=== PATIENT | male | born 1965 | race Caucasian/White ===

== ENCOUNTER 2017-04-12 04:13 | Emergency (ER) | payer BC ==
[~2017-04-12] VITALS: Ht 175.3 cm; Wt 117.8 kg
[~2017-04-12 04:13] MED LIST: ASPI1TAB83 PO; FLX10 PO; LSN5 PO; MECL1TAB42 PO; NRV5 PO; TPRSR/50 PO; ZLF/50 PO
[2017-04-12 04:17] VITALS: TEMP 36.4; Ht 175.3 cm; Wt 117.8 kg
[2017-04-12] MEDS ORDERED: CEFTRIAXONE SOD INJ 1 GM ADDVIAL IV STA (04:33)
--- NOTE | 2017-04-12 04:41 | EMERGENCY ROOM VISIT NOTE ---
History First contact with patient: 04:23 Chief Complaint: WOUND INFECTION Stated Complaint: INFECTION/PAIN IN STOMACH Nursing Triage Summary: c/o reddness, pain and warmth to lower abdomen. hx skin infection in foot, knee and arm that were treated with abx and resolved. pt went to [facility] and instructed to come here if worsening. History of Present Illness The patient is a 51 year old male who presents to the Emergency Room with complaints of an infection to his abdomen. The patient reports that he developed redness and warmth of the lower abdomen yesterday morning. He states that he was seen at an urgent care clinic and prescribed doxycycline. He was told to come here if symptoms worsen. He states that the pain seems to be spreading and the area of redness has increased in size. He does report a recent history of infections of his hand, knee and foot within the past several months. The patient denies any fevers. He rates his discomfort an 8/10. He has a history of a surgery on his spleen but states it was not removed. Review of Systems A complete 10 point review of systems was reviewed with the patient with pertinent positives and negatives as per history of present illness. All else were negative. Past Medical/Surgical History Medical Problems: (1) Benign hypertension (2) Colectomy (3) Diverticulitis (4) Migraine Surgical Problems: (1) Splenic repair Family History Heart disease Social History Smoking Status: Never Smoker Alcohol Use: none Marital Status: Housing Status: lives with significant other Current/Historical Medications Scheduled Amlodipine (Norvasc), 5 MG PO DAILY Aspirin (Aspirin), 81 MG PO DAILY Lisinopril (Zestril), 40 MG PO DAILY Metoprolol Succinate (Metoprolol Succinate ER), 100 MG PO DAILY Sertraline HCl (Sertraline HCl), 100 MG PO DAILY Physical Exam Vital Signs Date Time Temp Pulse Resp B/P (MAP) Pulse Ox O2 Delivery O2 Flow Rate FiO2 04/12/17 05:56 64 18 134/96 98 Room Air 04/12/17 04:17 36.4 91 20 168/100 96 Room Air Physical Exam VITALS: Vitals are noted on the nurse's note and reviewed by myself. Vital signs stable. GENERAL: This is a 51-year-old male, in no acute distress, nontoxic in appearance, well-developed well-nourished. SKIN: There is erythema and warmth to touch extending across the lower abdomen. There is a midline scar below the umbilicus. There is a large scar in the left upper quadrant. There is a small area of induration at the inferior aspect of the midline scar. There is no fluctuance. There are no openings of the skin. HEART: Regular rate and rhythm without murmurs gallops or rubs. LUNGS: Clear to auscultation bilaterally without wheezes, rales or rhonchi. ABDOMEN: Positive bowel sounds x 4. There is tenderness over the area of erythema and warmth. The abdomen is otherwise soft and nontender without masses. NEURO: Patient was alert and oriented to person place and time. Medical Decision & Procedures Laboratory Results 04/12/17 04:35 Red Blood Count 5.12, Mean Corpuscular Volume 91.8, Mean Corpuscular Hemoglobin 31.1, Mean Corpuscular Hemoglobin Concent 33.8, Mean Platelet Volume 10.0, Neutrophils (%) (Auto) 58.8, Lymphocytes (%) (Auto) 19.2, Monocytes (%) (Auto) 17.5, Eosinophils (%) (Auto) 4.1, Basophils (%) (Auto) 0.3, Neutrophils # (Auto ) 4.19, Lymphocytes # (Auto) 1.37, Monocytes # (Auto) 1.25, Eosinophils # (Auto ) 0.29, Basophils # (Auto) 0.02 04/12/17 04:35 Test 04/12/17 04:35 White Blood Count 7.13 K/uL (4.8-10.8) Red Blood Count 5.12 M/uL (4.7-6.1) Hemoglobin 15.9 g/dL (14.0-18.0) Hematocrit 47.0 % (42-52) Mean Corpuscular Volume 91.8 fL (80-100) Mean Corpuscular Hemoglobin 31.1 pg (25-34) Mean Corpuscular Hemoglobin Concent 33.8 g/dl (32-36) Platelet Count 198 K/uL (130-400) Mean Platelet Volume 10.0 fL (7.4-10.4) Neutrophils (%) (Auto) 58.8 % Lymphocytes (%) (Auto) 19.2 % Monocytes (%) (Auto) 17.5 % Eosinophils (%) (Auto) 4.1 % Basophils (%) (Auto) 0.3 % Neutrophils # (Auto) 4.19 K/uL (1.4-6.5) Lymphocytes # (Auto) 1.37 K/uL (1.2-3.4) Monocytes # (Auto) 1.25 K/uL (0.11-0.59) Eosinophils # (Auto) 0.29 K/uL (0-0.5) Basophils # (Auto) 0.02 K/uL (0-0.2) RDW Standard Deviation 46.3 fL (36.4-46.3) RDW Coefficient of Variation 13.8 % (11.5-14.5) Immature Granulocyte % (Auto) 0.1 % Immature Granulocyte # (Auto) 0.01 K/uL (0.00-0.02) Anion Gap 7.0 mmol/L (3-11) Est Creatinine Clear Calc Drug Dose 94.1 ml/min Estimated GFR () 83.7 Estimated GFR (Non- 72.3 BUN/Creatinine Ratio 10.6 (10-20) Calcium Level 9.0 mg/dl (8.5-10.1) Medications Administered Medications (Trade) Dose Ordered Sig/Radha Route Start Time Stop Time Status Last Admin Dose Admin Ceftriaxone Sodium (Rocephin Inj) 1 gm NOW STAT IV 04/12/17 04:33 04/12/17 04:34 DC 04/12/17 04:49 1 GM Medical Decision Differential diagnosis includes abscess, cellulitis, among others. The patient was evaluated as above. He has a cellulitis of the lower abdomen. He was placed on doxycycline and currently has taken one dose of this. He is afebrile and nontoxic in appearance. There is some mild induration without fluctuance. Labs were drawn. Patient has no leukocytosis. He was given 1 g Rocephin IV. The skin was outlined with a skin marker. Patient will continue doxycycline and will return here in 24 hours for recheck. He was advised to return sooner if the redness worsens significantly or if he develops a fever. He verbalized understanding of my assessment and treatment plan and was discharged home in good condition. Medication Reconcilliation Current Medication List: was personally reviewed by me Blood Pressure Screening Patient's blood pressure: Elevated blood pressure Blood pressure disposition: Elevated BP felt to be situational Impression Primary Impression: Cellulitis of abdominal wall Departure Information Dispostion Home / Self-Care Condition GOOD Referrals Phoebe Calloway M.D. (PCP) Patient Instructions My [facility] Additional Instructions Continue the doxycycline as prescribed. For pain control, you can use the following [id number] medicines (if >12 yo): - Regular strength (325mg/tab) Tylenol (acetaminophen) 2 tabs every 4-6 hours as needed. Do not exceed 12 tablets in a 24 hour period. Avoid taking more than 4 grams (4000 mg) of Tylenol per day. This includes any other sources of acetaminophen you may take on a regular basis. - Regular strength (200 mg/tab) Advil (ibuprofen) 1-2 tabs every 4-6 hours as needed. Do not exceed a dose of 3200 mg per day. Return in 24 hours for a recheck. Return to the emergency department sooner with significantly worsening redness/ swelling, fevers, or any other new/concerning symptoms.
[2017-04-12] MEDS ORDERED: AMLO-110 PO (04:50)
[2017-04-12] MEDS ORDERED: LISI-461 PO (04:52)
[2017-04-12] MEDS ORDERED: LISI40TA PO (04:54)
[2017-04-12 04:56] LABS: BASO % 0.3 %; BASO ABS # 0.02 K/uL (0-0.2); EOS % 4.1 %; EOS ABS # 0.29 K/uL (0-0.5); HEMOGLOBIN 15.9 g/dL (14.0-18.0); IG# 0.01 K/uL (0.00-0.02); LYMPH % 19.2 %; LYMPH ABS # 1.37 K/uL (1.2-3.4); MEAN CELL VOLUME 91.8 fL (80-100); MEAN CORPUSCULAR HEMOGLOBIN 31.1 pg (25-34); MEAN CORPUSCULAR HGB CONC 33.8 g/dl (32-36); MONO % 17.5 %; MONO ABS # 1.25 K/uL (0.11-0.59); NEUT % 58.8 %; NEUT ABS # 4.19 K/uL (1.4-6.5); PLATELET COUNT 198 K/uL (130-400); RED CELL DISTRIBUTION WIDTH CV 13.8 % (11.5-14.5); RED CELL DISTRIBUTION WIDTH SD 46.3 fL (36.4-46.3); WHITE BLOOD COUNT 7.13 K/uL (4.8-10.8)
[2017-04-12 05:11] LABS: CREATININE 1.15 mg/dl (0.60-1.40); POTASSIUM 3.7 mmol/L (3.5-5.1)
[2017-04-12 05:56] VITALS: BP 134/96; PULSE 64; O2SAT 98
== END 2017-04-12 05:59 | disposition home or self-care (01) ==
LOC: C.EDB 04:14 → C.EDA 05:59
DX: L03.311 Cellulitis of abdominal wall (principal); I10 Essential (primary) hypertension; Z79.82 Long term (current) use of aspirin; Z79.899 Other long term (current) drug therapy; Z87.19 Personal history of other diseases of the digestive system; Z82.49 Family history of ischemic heart disease and other diseases of the circulatory system

== ENCOUNTER 2018-09-08 15:40 | Inpatient (IN) ==
[2018-09-08] MEDS ORDERED: ACETAMINOPHEN 1,000 MG/100 ML VIAL IV STA (16:09)
[2018-09-08] MEDS ORDERED: SODIUM CHLORIDE 0.9% 1000ML 1,000 ML IV ONE (16:09)
[2018-09-08] MEDS ORDERED: ONDANSETRON INJ 2 MG/ML 2 ML VIAL IV STA (16:09)
[2018-09-08] MEDS ORDERED: DICYCLOMINE HCL 10 MG/ML 2 ML AMP/VIAL IM ONE (16:09)
[2018-09-08] MEDS ORDERED: fentaNYL citrate 100 MCG/2 ML VIAL IV STA (16:09)
[2018-09-08 16:39] LABS: Basophils # (auto) 0.02 K/uL (0-0.2); Basophils % (auto) 0.3 %; Eosinophils # (auto) 0.16 K/uL (0-0.5); Eosinophils % (auto) 2.6 %; Hematocrit (blood only) 47.6 % (42-52); Hemoglobin 16.4 g/dL (14.0-18.0); Immature Granulocytes # (auto) 0.02 K/uL (0.00-0.02); Immature Granulocytes % (auto) 0.3 %; Lymphocytes % (auto) 32.3 %; Mean Corpuscular Hgb Conc 34.5 g/dL (32-36); Mean Corpuscular Volume 90.5 fL (80-100); Mean Platelet Volume 10.1 fL (7.4-10.4); Monocytes # (auto) 1.08 K/uL (0.11-0.59); Monocytes % (auto) 17.4 %; Neutrophils # (auto) 2.92 K/uL (1.4-6.5); Neutrophils % (auto) 47.1 %; Platelet Count 251 K/uL (130-400); RDW Coefficient of Variation 13.7 % (11.5-14.5); RDW Standard Deviation 45.3 fL (36.4-46.3); Red Blood Count 5.26 M/uL (4.7-6.1)
[2018-09-08 16:55] LABS: Alanine Aminotransferase 34 U/L (12-78); Albumin Level 3.5 gm/dl (3.4-5.0); Aspartate Aminotransferase 19 U/L (15-37); BUN Creatinine Ratio 17.5 (10-20); Blood Urea Nitrogen 30 mg/dl (7-18); Calcium 8.6 mg/dl (8.5-10.1); Carbon Dioxide 30 mmol/L (21-32); Chloride 104 mmol/L (98-107); Creatinine Clr Calc Pharmacy 64.5 ml/min; Est GFR (African American) 51.8; Est GFR (Non-African American) 44.7; Glucose 72 mg/dl (70-99); Magnesium 2.4 mg/dl (1.8-2.4); Potassium 3.1 mmol/L (3.5-5.1); Sodium 139 mmol/L (136-145)
[2018-09-08 17:00] LABS: Albumin Globulin Ratio 0.8 (0.9-2); Alkaline Phosphatase 62 U/L (45-117); Bilirubin,Total 0.5 mg/dl (0.2-1); Globulin 4.4 gm/dl (2.5-4.0); Total Protein 7.9 gm/dl (6.4-8.2); Troponin I < 0.015 ng/ml (0-0.045)
--- NOTE | 2018-09-08 17:24 | CT Scan Report ---
CT SCAN OF THE ABDOMEN AND PELVIS WITHOUT CONTRAST CLINICAL HISTORY: Abdominal pain and diarrhea. COMPARISON STUDY: June 09, 2012 TECHNIQUE: CT scan of the abdomen and pelvis was performed from the lung bases to the proximal femurs . Images are reviewed in the axial, sagittal, and coronal planes. IV contrast was not administered fo r this examination. A dose lowering technique was utilized adhering to the principles of ALARA. CT DOSE: 1492.32 mGy.cm FINDINGS: Lower chest: The heart is normal in size and configuration, without pericardial effusion. The lung ba ses and pleural spaces are clear. Liver: The unenhanced liver is normal in size, contour, and attenuation. There is no intrahepatic rita iary ductal dilatation. There is a right lobe dystrophic calcification. Gallbladder: Unremarkable. Spleen: Normal in size and attenuation. Pancreas: Unremarkable. Adrenal glands: Unremarkable. Kidneys: There is a punctate nonobstructing right renal calculus. No ureteral or bladder calculi are visualized. Bowel: There are no transition zone to indicate bowel obstruction. The appendix appears normal. There is colonic diverticulosis. There is infiltration of the pericolonic fat at the level of the transver se colon. The findings are consistent with acute diverticulitis. There are no fluid collections to in dicate an abscess. Peritoneum: There is no intraperitoneal free air or abdominal ascites. Vasculature: The abdominal aorta is normal in course and caliber. Adenopathy: None. Pelvic viscera: The bladder, and pelvic viscera are unremarkable. Skeletal structures: No destructive osseous lesions are seen. Note is made of a few bone islands. IMPRESSION: 1. Acute diverticulitis of the transverse colon. No evidence of peridiverticular abscess 2. No evidence of bowel obstruction. No evidence of free air 3. Normal appendix Electronically signed by: Claudio Moody M.D. 09/08/2018 5:23 PM
[2018-09-08] MEDS ORDERED: PIPERACILL/TAZOBAC CONSULT ACTIVE PRN (17:52)
[2018-09-08] MEDS ORDERED: PIPERACILLIN/TAZOBACTAM 4.5 GM/120 ML BAG IV ONE (17:52)
[2018-09-08 18:09] LABS: Appearance Urine Clear (Clear); Bilirubin Urine Negative (Negative); Blood Urine Negative (Negative); Color Urine Yellow; Glucose Urine UA Negative (Negative); Ketones Urine Negative (Negative); Leukocyte Esterase Urine Negative (Negative); Nitrite Urine Negative (Negative); Protein Urine Negative (Negative); Specific Gravity Urine 1.026 (1.000-1.030); Urobilinogen Urine Negative (Negative)
[2018-09-08] MEDS ORDERED: fentaNYL citrate 100 MCG/2 ML VIAL IV PRN (18:18)
[2018-09-08] MEDS ORDERED: SODIUM CHLORIDE 0.9% 1000ML 1,000 ML IV SCH (18:30)
--- NOTE | 2018-09-08 19:08 | History & Physical Report ---
Date of Service September 08, 2018 Assessment & Plan (1) Acute diverticulitis: -Admit to [facility] -Patient presenting from home with reports of abdominal pain x1 week, was seen by PCP 4 days ago and placed on Cipro for suspected diverticulitis -Patient has had continued pain, nausea, diarrhea -In the ED, CT ABD/pelvis showing acute diverticulitis without abscess -Afebrile, no leukocytosis; does not appear septic -Received IV Zosyn in the ED, will continue with -Supportive care with IVF, PRN pain and antiemetic medications -Noted colonoscopy from 2013 demonstrated diverticulosis throughout the entire examined colon -Given history of recurrent flares, recommend outpatient follow-up with GI a nd/or general surgery (2) SHY (acute kidney injury): -Creatinine 1.7 -Likely prerenal nature secondary to poor p.o. intake, diarrhea in combination with continued TAMICA inhibitor and diuretic use -IVF, hold lisinopril and chlorthalidone -Follow renal functions (3) Hypokalemia: -Mild, K+ 3.1 -Replace, follow potassium levels (4) Hypertension: -BP controlled, continue amlodipine and metoprolol -Holding chlorthalidone and lisinopril as above due to SHY (5) Depression: -Continue sertraline (6) DVT prophylaxis: -SCDs, ambulate History of Present Illness Chief Complaint: Abdominal pain Primary Care Provider: CARROLL DOLL 52-year-old male who presents to the ED with abdominal pain. Patient reports his symptoms began 1 week ago. He was seen by his PCP 4 days ago and was placed on Cipro for suspected diverticulitis. Patient has history of multiple recurrences of diverticulitis, status post sigmoid resection in 1996. Patient reports pain is located in his lower abdomen. He has had several episodes of diarrhea. Reports diarrhea occurs shortly after eating. For the past couple of days, he has decreased his food intake. Reports he has been drinking water. Denies bright red bleeding per rectum and dark tarry stools. He has had nausea denies any vomiting. He reports being lightheaded and dizzy however no syncopal events. He has had a persistent headache located over his left confucianist. No blurred vision. Denies chest pain shortness of breath. Reports episodes of diaphoresis however no chills and does not think he has had a fever. No urinary symptoms. In the ED, CT ABD/pelvis is showing acute diverticulitis of the transverse colon. Labs show creatinine 1.7, K+ 3.1. Patient was given IVF, IV Zosyn, IV Zofran, IV fentanyl, IM dicyclomine, IV Tylenol. Allergies Allergy/AdvReac Type Severity Reaction Status Date / Time Iodinated Contrast- Oral and Allergy Mild HIVES Verified 09/08/18 16:46 IV Dye prednisone Allergy Mild CHEST PAIN Verified 09/08/18 16:46 AND SHORTNESS OF BREATH Home Medications Home Medications Medication Instructions Recorded Confirmed Type amlodipine 10 mg PO DAILY 09/08/18 09/08/18 History aspirin [Aspirin Low Dose] 81 mg PO DAILY 09/08/18 09/08/18 History chlorthalidone 25 mg PO DAILY 09/08/18 09/08/18 History cholecalciferol (vitamin D3) 1,000 unit PO DAILY 09/08/18 09/08/18 History ciprofloxacin HCl 500 mg PO BID 09/08/18 09/08/18 History dicyclomine 10 mg PO TID PRN 09/08/18 09/08/18 History lisinopril 40 mg PO DAILY 09/08/18 09/08/18 History metoprolol succinate 100 mg PO DAILY 09/08/18 09/08/18 History sertraline 150 mg PO DAILY 09/08/18 09/08/18 History Past Med/Surg History Medical History 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) Depression (Chronic) IBS (irritable bowel syndrome) (Chronic) Diverticulosis (Chronic) Hypertension (Chronic) Surgical History H/O hemorrhoidectomy (Chronic) History of bowel resection (Chronic) Sigmoid for diverticulitis H/O arthroscopic knee surgery (Chronic) Family History Mother Cerebral aneurysm Social History Preferred Language: Moldovan Communication Ability: Effective Beliefs That Will Affect Care: None Current Living Situation: Spouse and Family Other Information That Helps Us Care for You: No Feels Safe at Home: Yes Smoking Status: Never smoker Hx Alcohol Use: Yes Alcohol type: wine Hx Substance Use: Yes substance use type: does not use Last Used Substance: Unknown Review of Systems Review of Systems: ROS per HPI, all other systems reviewed and negative Physical Exam Constitutional: WD/WN, vitals as above Eyes: PERRL, conjunctivae normal, anicteric sclerae ENMT: Ears: no external ear abnormality Nose: no external nose abnormality Mouth: + dry oral mucous membranes Respiratory: normal respiratory effort, lungs clear to auscultation Cardiovascular: Rate/Rhythm: regular rate and regular rhythm Vessels: normal peripheral pulses Extremities: no edema Gastrointestinal (Abdomen): Inspection/Auscultation: normal bowel sounds; abdomen not distended Percussion/Palpation: + abdomen tender (Lower abdomen, more pronounced in the left lower quadrant) and abdomen soft; no hepatosplenomegaly Musculoskeletal: no cyanosis or clubbing, extremities motor strength 5/5 Skin: no rashes, warm and dry Neurologic: PERRL, EOMI, accommodation nl, no face palsy, no dysarthria Psychiatric: A+Ox3, euthymic affect Results & Data Vital Signs (Past 12 Hours) Vital Signs Temp Pulse Resp BP Pulse Ox 09/08/18 17:00 67 12 92 09/08/18 16:30 66 17 92 09/08/18 16:29 69 19 94 09/08/18 16:23 64 21 123/75 94 09/08/18 15:55 36.9 C 86 18 120/75 96 Laboratory Results Short CBC 09/08/18 Range/Units 16:23 WBC 6.20 (4.8-10.8) K/uL Hgb 16.4 (14.0-18.0) g/dL Hct 47.6 (42-52) % Plt Count 251 (130-400) K/uL BMP 09/08/18 16:23 Sodium 139 Potassium 3.1 L Chloride 104 Carbon Dioxide 30 BUN 30 H Creatinine 1.70 H Glucose 72 Calcium 8.6 Cardiac Enzymes 09/08/18 Range/Units 16:23 Troponin I < 0.015 (0-0.045) ng/ml Liver Function 09/08/18 Range/Units 16:23 Total Bilirubin 0.5 (0.2-1) mg/dl AST 19 (15-37) U/L ALT 34 (12-78) U/L Alkaline Phosphatase 62 (45-117) U/L Albumin 3.5 (3.4-5.0) gm/dl Urine 09/08/18 Range/Units 17:50 Urine Color Yellow Urine Appearance Clear (Clear) Urine pH 5.0 (4.5-7.5) Ur Specific [place] 1.026 (1.000-1.030) Urine Protein Negative (Negative) Urine Glucose (UA) Negative (Negative) Diagnostic Findings CT ABD/PELVIS IMPRESSION: 1. Acute diverticulitis of the transverse colon. No evidence of peridiverticular abscess 2. No evidence of bowel obstruction. No evidence of free air 3. Normal appendix Code Status & VTE Plan Code Status Patient is a full code as per my discussion with him. VTE Prophylaxis Plan VTE Prophylaxis will be ordered: Yes Supervising Physician Co-Signing Physician Notes I have seen and examined the patient and have discussed the case with the provider above. I agree with the assessment and plan as stated with the following exceptions. Mr Masterson reports intermittent LLQ pain and a history of recurrent diverticulitis. The pain was more intense beginning one week ago, and he was having bowel urgency after eating. He denies any fevers, chills, nausea, vomiting or other issues. He reports eating alot of Nguyen's and quick easily accessible foods like this that are cheap. He verbalized understanding that he is overweight (obese) and needs to lose weight. We discussed dairy-free diet as an option and moving to wheat-free as another option if the first was unsuccessful. We discussed the importance of working out and eating right including fresh fruits and vegetables and lean meats and other sources of protein. He is otherwise feeling well and is healthy. He notably did see Tresa [facility] in June 2018 who recommended Bentyl PRN, Miralax and fiber combination to regulate his stool, avoiding high fat foods and encouraged weight loss. On exam he is hemodynamically stable and afebrile. He has RUQ pain and LLQ pain with abdomen soft and nondistended. Heart and lung exam are normal and he is in no acute distress. He just underwent a RUQ US as outpatient earlier today revealing no evidence of acute cholecystitis with severe hepatic steatosis. Suspect cipro as monotherapy was not enough, and if feeling well after a couple of days on Zosyn, would think it is reasonable to de-escalate to Cipro/Flagyl for discharge to complete antibiotic course. Active issues: acute transverse colon diverticulitis, SHY. DO Dg
[2018-09-08] MEDS ORDERED: ONDANSETRON INJ 2 MG/ML 2 ML VIAL IV PRN (19:52)
[2018-09-08] MEDS ORDERED: ACETAMINOPHEN 325 MG TAB PO PRN (19:52)
[2018-09-08] MEDS ORDERED: POTASSIUM CHLORIDE 20 MEQ TABCR PO STA (19:52)
[2018-09-08] MEDS: NSS + 20MEQ KCL 20 MEQ/1,000 ML BAG IV SCH (20:58)
--- NOTE | 2018-09-08 23:12 | Emergency Department Note ---
Entered by Ariela Jackson acting as a scribe for Zulma Mckee DO History of Present Illness General Chief complaint: Abdominal Pain Stated complaint: STOMACH PAIN, DIARRHEA/HEADACHE X7 DAYS Time Seen by Provider: 09/08/18 16:01 Source: patient Limitations: no limitations History of Present Illness Onset (ago): day(s) 7 Location: abdomen Severity: severe and similar to prior episodes Pain Consistency: + constant Maximum Pain Intensity: 5 Quality: + constant Associated symptoms: + denies other symptoms (urinary symptoms), + diaphoresis, + nausea/vomiting (complains of nausea) and + other (dizziness and lightheadedness); no fever/chills The patient is a 52 year old male who presents to the ED complaining of constant severe generalized abdominal pain that began 7 days ago. He complains of a headache, noting that this is similar to his past migraines. The patient complains of diarrhea, diaphoresis, nausea, dizziness and lightheadedness. He denies any fevers/chills and urinary symptoms. States he has had looser stools for quite some time and is typically associated with his diet. Denies any black or bloody stools. He notes that this is similar to his past episodes of diverticulitis, but he notes abdominal pain is more central than before. The patient notes that he saw his PCP 3 days ago, and he was prescribed ciprofloxacin. He reports that he has not noticed any improvement of the sympto ms. He states in the he did have a resection of part of his colon due to severe and recurrent diverticulitis. Has had GI follow-up since then including a colonoscopy 1 year ago. States he does have a scheduled routine GI follow-up appointment next week. Home Medications Home Medications Medication Instructions Recorded Confirmed Type amlodipine 10 mg PO DAILY 09/08/18 09/08/18 History aspirin [Aspirin Low Dose] 81 mg PO DAILY 09/08/18 09/08/18 History chlorthalidone 25 mg PO DAILY 09/08/18 09/08/18 History cholecalciferol (vitamin D3) 1,000 unit PO DAILY 09/08/18 09/08/18 History ciprofloxacin HCl 500 mg PO BID 09/08/18 09/08/18 History dicyclomine 10 mg PO TID PRN 09/08/18 09/08/18 History lisinopril 40 mg PO DAILY 09/08/18 09/08/18 History metoprolol succinate 100 mg PO DAILY 09/08/18 09/08/18 History sertraline 150 mg PO DAILY 09/08/18 09/08/18 History Allergies Allergy/AdvReac Type Severity Reaction Status Date / Time Iodinated Contrast- Oral and Allergy Mild HIVES Verified 09/08/18 16:46 IV Dye prednisone Allergy Mild CHEST PAIN Verified 09/08/18 16:46 AND SHORTNESS OF BREATH Past Med/Surg History Medical History 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) Depression (Chronic) IBS (irritable bowel syndrome) (Chronic) Diverticulosis (Chronic) Hypertension (Chronic) Surgical History H/O hemorrhoidectomy (Chronic) History of bowel resection (Chronic) Sigmoid for diverticulitis H/O arthroscopic knee surgery (Chronic) Family History Mother Cerebral aneurysm Social History Preferred Language: Sami Communication Ability: Effective Beliefs That Will Affect Care: None Current Living Situation: Spouse and Family Other Information That Helps Us Care for You: No Feels Safe at Home: Yes Smoking Status: Never smoker Hx Alcohol Use: Yes Alcohol type: wine Hx Substance Use: Yes substance use type: does not use Last Used Substance: Unknown Review of Systems See HPI for pertinent positives & negatives. and A total of 10 systems reviewed and were otherwise negative Physical Exam Vital Signs Vital Signs - 24 hr 09/08/18 15:55 09/08/18 16:23 09/08/18 16:29 Temperature 36.9 C Temperature Source Oral Sepsis Recent Fever Within 48 Hours No Sepsis New/Unexplained Change in Mental Status No Sepsis Action Taken by Nursing No Action Required Pulse Rate 86 64 69 Pulse Rate from SpO2 Sensor 66 67 Respiratory Rate 18 21 19 Blood Pressure 120/75 123/75 Blood Pressure Mean 90 91 Pulse Oximetry 96 94 94 Oxygen Delivery Method Room Air 09/08/18 16:30 09/08/18 17:00 09/08/18 17:22 Temperature Temperature Source Sepsis Recent Fever Within 48 Hours Sepsis New/Unexplained Change in Mental Status Sepsis Action Taken by Nursing Pulse Rate 66 67 53 L Pulse Rate from SpO2 Sensor 65 62 53 L Respiratory Rate 17 12 Blood Pressure 100/58 L Blood Pressure Mean 72 Pulse Oximetry 92 92 90 Oxygen Delivery Method 09/08/18 17:30 09/08/18 17:32 09/08/18 18:01 Temperature Temperature Source Sepsis Recent Fever Within 48 Hours Sepsis New/Unexplained Change in Mental Status Sepsis Action Taken by Nursing Pulse Rate 55 L 55 L 56 L Pulse Rate from SpO2 Sensor 55 L 56 L Respiratory Rate 22 16 20 Blood Pressure 101/60 Blood Pressure Mean 73 Pulse Oximetry 93 91 Oxygen Delivery Method 09/08/18 18:02 09/08/18 18:10 09/08/18 18:20 Temperature Temperature Source Sepsis Recent Fever Within 48 Hours Sepsis New/Unexplained Change in Mental Status Sepsis Action Taken by Nursing Pulse Rate 54 L 56 L 58 L Pulse Rate from SpO2 Sensor 55 L 56 L 58 L Respiratory Rate 19 17 Blood Pressure 126/67 Blood Pressure Mean 86 Pulse Oximetry 91 92 93 Oxygen Delivery Method 09/08/18 18:30 09/08/18 18:31 09/08/18 18:40 Temperature Temperature Source Sepsis Recent Fever Within 48 Hours Sepsis New/Unexplained Change in Mental Status Sepsis Action Taken by Nursing Pulse Rate 53 L 56 L 52 L Pulse Rate from SpO2 Sensor 54 L 59 L 54 L Respiratory Rate 24 21 17 Blood Pressure 122/72 Blood Pressure Mean 88 Pulse Oximetry 93 91 94 Oxygen Delivery Method 09/08/18 18:43 Temperature Temperature Source Sepsis Recent Fever Within 48 Hours Sepsis New/Unexplained Change in Mental Status Sepsis Action Taken by Nursing Pulse Rate 52 L Pulse Rate from SpO2 Sensor 56 L Respiratory Rate 21 Blood Pressure 122/72 Blood Pressure Mean 88 Pulse Oximetry 95 Oxygen Delivery Method GENERAL: alert, well appearing, well nourished, no distress, non-toxic EYE EXAM: normal conjunctiva, PERRL and EOM's grossly intact OROPHARYNX: no exudate, no erythema, lips, buccal mucosa, and tongue normal and mucous membranes are dry NECK: supple, no nuchal rigidity, no adenopathy, non-tender LUNGS: Clear to auscultation. Normal chest wall mechanics, no w/r/r HEART: no murmurs, S1 normal and S2 normal ABDOMEN: abdomen soft, normo-active bowel sounds, no masses, no rebound or guarding. Diffuse abdominal tenderness, worse in the lower abdomen. No pulsatile mass. BACK: Back is symmetrical on inspection and there is no deformity, no midline tenderness, no CVA tenderness. SKIN: no rashes and no bruising, no petechiae UPPER EXTREMITIES: upper extremities are grossly normal. FROM, nml pulses b/l. LOWER EXTREMITIES: No pitting edema. FROM, nml pulses b/l. NEURO EXAM: Normal sensorium, cranial nerves II-XII grossly intact, normal speech, no gross weakness of arms, no gross weakness of legs. Course 1606: The patient was evaluated in room B08. A complete history and physical exam was performed. 1753: I reassessed the patient, and he stated that his pain was relieved. 3: I spoke with Tresa No, about the patient's case. She will further evaluate the patient. Consultations Consultation #1: I spoke with Tresa No, about the patient's case. She will further evaluate the patient. Time: 18:23 Administered Medications Potassium Chloride/Sodium Chloride (Normal Saline W/20 Meq Kcl) 20 meq in 1,000 mls @ 125 mls/hr IV .Q8H LEONARD Stop: 10/08/18 20:29 Last Admin: 09/08/18 20:58 Dose: 125 mls/hr Documented by: [id number] Discontinued Medications Dicyclomine HCl (Bentyl) 20 mg IM NOW ONE Stop: 09/08/18 16:10 Last Admin: 09/08/18 16:55 Dose: 20 mg Documented by: [id number] Fentanyl Citrate (Fentanyl Citrate) 100 mcg IV NOW STA Stop: 09/08/18 16:10 Last Admin: 09/08/18 16:55 Dose: 100 mcg Documented by: [id number] Acetaminophen (Ofirmev) 1,000 mg in 100 mls @ 400 mls/hr IV NOW STA Stop: 09/08/18 16:23 Last Infusion: 09/08/18 17:18 Dose: 0 mls/hr Documented by: [id number] Admin: 09/08/18 16:56 Dose: 400 mls/hr Documented by: [id number] Sodium Chloride (Nss 1000ml) 1,000 mls @ 999 mls/hr IV .Q1H1M ONE Stop: 09/08/18 17:09 Last Infusion: 09/08/18 17:36 Dose: 0 mls/hr Documented by: [id number] Admin: 09/08/18 16:56 Dose: 999 mls/hr Documented by: [id number] Piperacillin Sod/Tazobactam Sod (Zosyn) 4.5 gm in 120 mls @ 240 mls/hr IV NOW ONE Stop: 09/08/18 18:21 Last Infusion: 09/08/18 18:37 Dose: 0 mls/hr Documented by: [id number] Admin: 09/08/18 18:05 Dose: 240 mls/hr Documented by: [id number] Sodium Chloride (Nss 1000ml) 1,000 mls @ 125 mls/hr IV .Q8H LEONADR Stop: 10/08/18 18:29 Last Admin: 09/08/18 18:23 Dose: 125 mls/hr Documented by: [id number] Ondansetron HCl (Zofran) 4 mg IV NOW STA Stop: 09/08/18 16:10 Last Admin: 09/08/18 16:56 Dose: 4 mg Documented by: [id number] Potassium Chloride (Klor-Con M20) 40 meq PO NOW STA Stop: 09/08/18 19:53 Last Admin: 09/08/18 20:58 Dose: 40 meq Documented by: [id number] Medical Decision Making Differential Diagnosis Etiologies such as biliary colic, cholecystitis, hepatitis, pancreatitis, cardiac disease, pancreatitis, gastritis, peptic ulcer disease, appendicitis, cystitis, diverticulitis, mesenteric ischemia, inflammatory bowel disease, ileus, bowel obstruction, testicular torsion, aortic pathology, shingles, as well as others were considered. Medical Records Attestation: I reviewed the patient's medical records. Home Medications Current Medication List: was personally reviewed by me Laboratory Data Attestation: I reviewed the patient's lab results. Result diagrams: 09/08/18 16:23 09/08/18 16:23 Lab Results 09/08/18 09/08/18 09/08/18 Range/Units 16:23 16:23 16:23 WBC 6.20 (4.8-10.8) K/uL RBC 5.26 (4.7-6.1) M/uL Hgb 16.4 (14.0-18.0) g/dL Hct 47.6 (42-52) % MCV 90.5 (80-100) fL MCH 31.2 (25-34) pg MCHC 34.5 (32-36) g/dL RDW Std Deviation 45.3 (36.4-46.3) fL RDW Coeff of [place] 13.7 (11.5-14.5) % Plt Count 251 (130-400) K/uL MPV 10.1 (7.4-10.4) fL Immature Gran % (Auto) 0.3 % Neut % (Auto) 47.1 % Lymph % (Auto) 32.3 % [place] % (Auto) 17.4 % Eos % (Auto) 2.6 % Baso % (Auto) 0.3 % Immature Gran # (Auto) 0.02 (0.00-0.02) K/uL Neut # (Auto) 2.92 (1.4-6.5) K/uL Lymph # (Auto) 2.00 (1.2-3.4) K/uL [place] # (Auto) 1.08 H (0.11-0.59) K/uL Eos # (Auto) 0.16 (0-0.5) K/uL Baso # (Auto) 0.02 (0-0.2) K/uL Sodium 139 (136-145) mmol/L Potassium 3.1 L (3.5-5.1) mmol/L Chloride 104 (98-107) mmol/L Carbon Dioxide 30 (21-32) mmol/L Anion Gap 5.0 (3-11) BUN 30 H (7-18) mg/dl Creatinine 1.70 H (0.6-1.4) mg/dl Est Cr Clr Drug Dosing 64.5 ml/min Est GFR ( Amer) 51.8 Est GFR (Non-Af Amer) 44.7 BUN/Creatinine Ratio 17.5 (10-20) Glucose 72 (70-99) mg/dl POC Lactic Acid Les (0.90-1.70) mmol/L Calcium 8.6 (8.5-10.1) mg/dl Magnesium 2.4 (1.8-2.4) mg/dl Total Bilirubin 0.5 (0.2-1) mg/dl AST 19 (15-37) U/L ALT 34 (12-78) U/L Alkaline Phosphatase 62 (45-117) U/L Troponin I < 0.015 (0-0.045) ng/ml Total Protein 7.9 (6.4-8.2) gm/dl Albumin 3.5 (3.4-5.0) gm/dl Globulin 4.4 H (2.5-4.0) gm/dl Albumin/Globulin Ratio 0.8 L (0.9-2) Lipase 199 (73-393) U/L Procalcitonin < 0.05 (0-0.5) ng/ml Urine Color Urine Appearance (Clear) Urine pH (4.5-7.5) Ur Specific [place] (1.000-1.030) Urine Protein (Negative) Urine Glucose (UA) (Negative) Urine Ketones (Negative) Urine Blood (Negative) Urine Nitrite (Negative) Urine Bilirubin (Negative) Urine Urobilinogen (Negative) Ur Leukocyte Esterase (Negative) 09/08/18 09/08/18 Range/Units 16:42 17:50 WBC (4.8-10.8) K/uL RBC (4.7-6.1) M/uL Hgb (14.0-18.0) g/dL Hct (42-52) % MCV (80-100) fL MCH (25-34) pg MCHC (32-36) g/dL RDW Std Deviation (36.4-46.3) fL RDW Coeff of [place] (11.5-14.5) % Plt Count (130-400) K/uL MPV (7.4-10.4) fL Immature Gran % (Auto) % Neut % (Auto) % Lymph % (Auto) % [place] % (Auto) % Eos % (Auto) % Baso % (Auto) % Immature Gran # (Auto) (0.00-0.02) K/uL Neut # (Auto) (1.4-6.5) K/uL Lymph # (Auto) (1.2-3.4) K/uL [place] # (Auto) (0.11-0.59) K/uL Eos # (Auto) (0-0.5) K/uL Baso # (Auto) (0-0.2) K/uL Sodium (136-145) mmol/L Potassium (3.5-5.1) mmol/L Chloride (98-107) mmol/L Carbon Dioxide (21-32) mmol/L Anion Gap (3-11) BUN (7-18) mg/dl Creatinine (0.6-1.4) mg/dl Est Cr Clr Drug Dosing ml/min Est GFR ( Amer) Est GFR (Non-Af Amer) BUN/Creatinine Ratio (10-20) Glucose (70-99) mg/dl POC Lactic Acid Les 0.89 L (0.90-1.70) mmol/L Calcium (8.5-10.1) mg/dl Magnesium (1.8-2.4) mg/dl Total Bilirubin (0.2-1) mg/dl AST (15-37) U/L ALT (12-78) U/L Alkaline Phosphatase (45-117) U/L Troponin I (0-0.045) ng/ml Total Protein (6.4-8.2) gm/dl Albumin (3.4-5.0) gm/dl Globulin (2.5-4.0) gm/dl Albumin/Globulin Ratio (0.9-2) Lipase (73-393) U/L Procalcitonin (0-0.5) ng/ml Urine Color Yellow Urine Appearance Clear (Clear) Urine pH 5.0 (4.5-7.5) Ur Specific [place] 1.026 (1.000-1.030) Urine Protein Negative (Negative) Urine Glucose (UA) Negative (Negative) Urine Ketones Negative (Negative) Urine Blood Negative (Negative) Urine Nitrite Negative (Negative) Urine Bilirubin Negative (Negative) Urine Urobilinogen Negative (Negative) Ur Leukocyte Esterase Negative (Negative) Imaging Data Radiologist's Impression: Radiology results as stated below per my review and the radiologist's interpretation: CT SCAN OF THE ABDOMEN AND PELVIS WITHOUT CONTRAST CLINICAL HISTORY: Abdominal pain and diarrhea. COMPARISON STUDY: June 09, 2012 TECHNIQUE: CT scan of the abdomen and pelvis was performed from the lung bases to the proximal femurs. Images are reviewed in the axial, sagittal, and coronal planes. IV contrast was not administered for this examination. A dose lowering technique was utilized adhering to the principles of ALARA. CT DOSE: 1492.32 mGy.cm FINDINGS: Lower chest: The heart is normal in size and configuration, without pericardial effusion. The lung bases and pleural spaces are clear. Liver: The unenhanced liver is normal in size, contour, and attenuation. There is no intrahepatic biliary ductal dilatation. There is a right lobe dystrophic calcification. Gallbladder: Unremarkable. Spleen: Normal in size and attenuation. Pancreas: Unremarkable. Adrenal glands: Unremarkable. Kidneys: There is a punctate nonobstructing right renal calculus. No ureteral or bladder calculi are visualized. Bowel: There are no transition zone to indicate bowel obstruction. The appendix appears normal. There is colonic diverticulosis. There is infiltration of the pericolonic fat at the level of the transverse colon. The findings are consistent with acute diverticulitis. There are no fluid collections to indicate an abscess. Peritoneum: There is no intraperitoneal free air or abdominal ascites. Vasculature: The abdominal aorta is normal in course and caliber. Adenopathy: None. Pelvic viscera: The bladder, and pelvic viscera are unremarkable. Skeletal structures: No destructive osseous lesions are seen. Note is made of a few bone islands. IMPRESSION: 1. Acute diverticulitis of the transverse colon. No evidence of peridiverticular abscess 2. No evidence of bowel obstruction. No evidence of free air 3. Normal appendix Electronically signed by: Claudio Moody M.D. 09/08/2018 5:23 PM ECG Data Attestation: I personally reviewed and interpreted this ECG as follows: Indication: abdominal pain Rate (beats per minute): 67 Rhythm: sinus rhythm Findings: + other (normal axis, normal intervals); no acute ischemic change and no ectopy Blood Pressure Blood Pressure Findings: Normal blood pressure Blood Pressure Disposition: did not require urgent referral MDM Narrative Patient well-appearing here with diffuse abdominal pain, worse in the lower abdomen. Patient found to have acute diverticulitis on CT, no other acute pathology noted on CT imaging. I do not suspect ischemic component to complaints. No evidence of bacteremia/sepsis. No evidence of abscess or perforation. Patient hemodynamically stable and afebrile here. No leukocytosis although I suspect he is partially treated by the outpatient ciprofloxacin. It is unclear why Cipro monotherapy only was used on him as an outpatient. Patient given IV Zosyn here. Patient felt improved with IV fluids and pain medication. Patient does have a mild elevation of his creatinine to 1.7, I suspect this is likely due to dehydration, routine use of an TAMICA inhibitor, and use of the ciprofloxacin. Case discussed with hospitalist service for additional monitoring and evaluation. Impression & Plan Diverticulitis, Abdominal pain, Failure of outpatient treatment Discharge Plan Visit Data *Final* Discharge Date/Time: 09/08/18 21:51 Chief Complaint: Abdominal Pain Stated Complaint: STOMACH PAIN, DIARRHEA/HEADACHE X7 DAYS ED Provider: Zulma Mckee Discharge Problem: Diverticulitis, Abdominal pain, Failure of outpatient treatment Patient Disposition: Admitted As Inpatient Discharge Instructions Interventions: ED Discharge Assessment Last Done: 09/08/18 21:51 Discharge Problem: Abdominal pain Qualifiers: Abdominal location: generalized Qualified Code(s): R10.84 - Generalized abdominal pain The scribe's documentation has been prepared under my direction and personally reviewed by me in its entirety. I confirm that the note above accurately reflects all work, treatment, procedures, and medical decision making performed by me.
[2018-09-09] MEDS: PIPERACILLIN/TAZOBACTAM 4.5 GM in DEXTROSE 5% 100 ML IV SCH ×3 (00:01→15:58)
[2018-09-09] MEDS: NSS + 20MEQ KCL 20 MEQ/1,000 ML BAG IV SCH ×3 (05:02→20:03)
[2018-09-09 06:12] LABS: Hematocrit (blood only) 44.1 % (42-52); Hemoglobin 14.7 g/dL (14.0-18.0); Mean Corpuscular Hgb Conc 33.3 g/dL (32-36); Mean Corpuscular Volume 91.5 fL (80-100); Mean Platelet Volume 10.2 fL (7.4-10.4); Platelet Count 216 K/uL (130-400); RDW Coefficient of Variation 13.8 % (11.5-14.5); RDW Standard Deviation 46.5 fL (36.4-46.3); Red Blood Count 4.82 M/uL (4.7-6.1); White Blood Count 4.81 K/uL (4.8-10.8)
[2018-09-09 06:57] LABS: BUN Creatinine Ratio 16.1 (10-20); Creatinine Clr Calc Pharmacy 75.3 ml/min; Est GFR (African American) 62.8; Est GFR (Non-African American) 54.2; Potassium 3.6 mmol/L (3.5-5.1)
--- NOTE | 2018-09-09 07:24 | Hospitalist Progress Note ---
Date of Service September 09, 2018 Assessment & Plan (1) Acute diverticulitis: -Patient presenting from home with reports of abdominal pain x1 week, was seen by PCP 4 days ago and placed on Cipro for suspected diverticulitis -In the ED, CT ABD/pelvis showing acute diverticulitis without abscess -Afebrile, no leukocytosis; does not appear septic -Cont IV Zosyn -IVF, PRN pain and antiemetic medications -Noted colonoscopy from 2013 demonstrated diverticulosis throughout the entire examined colon -Given history of recurrent flares, recommend outpatient follow-up with GI and/or general surgery (2) SHY (acute kidney injury): -Likely prerenal nature secondary to poor p.o. intake, diarrhea in combination with continued TAMICA inhibitor and diuretic use -IVF, hold lisinopril and chlorthalidone -Follow renal functions (3) Hypokalemia: -Replace, follow potassium levels (4) Hypertension: -BP controlled, continue amlodipine and metoprolol -Holding chlorthalidone and lisinopril as above due to SHY (5) Depression: -Continue sertraline (6) DVT prophylaxis: -SCDs, ambulate -Labs Checked ROS-No Headache, No Visual Changes, No Nausea, No Vomiting, No Fever, No Chills, No Neck Pain or Stiffness, No Chest Pain, No Palpitations, No SOB, No YMERS, No Co ugh, No Sputum, No Wheezing, +Abdominal Pain, No Diarrhea, No Hematemesis, No Hemoptysis, No Unexpected Weight Loss, No Flank pain, No Melena, No Hematochezia, No Frequency, No Urgency, No Burning, No Hematuria, No Rashes, No Diaphoresis. Appetite is Normal Physical Exam Gen-AAO x 3, NAD, Afebrile Head-NCAT, EOMI, PERRLA, Anicteric Sclera, No Posterior Pharyngeal Erythema Neck-Supple, No JVD, No Thyromegaly, No Masses, No LAD, No Bruits Lungs-Clear to Auscultation Bilaterally, No Rales, No Rhonchi, No Wheezing, No Crepitus Chest-No S4, +S1, +S2, No S3, No Murmurs, No Rubs, No Gallops, No Ectopy Abdomen-Soft, Bowel Sounds Present, Tender, Non Distended, No Hepatomegaly, No Splenomegaly, No Palpable Masses, No Rebound, No Rigidity, No Guarding Musculoskeletal-Full Range of Motion Bilaterally, No CVAT Extremities-No Cyanosis, No Clubbing, No Edema Nuero-Cranial Nerves II-XII grossly intact, Motor WNL, DTRs WNL, Strength WNL, Non Focal Psych-Normal Mood Results & Data Vital Signs (Past 12 Hours) Vital Signs Temp Pulse Resp BP BP Pulse Ox 09/09/18 06:56 36.6 C 52 L 20 99/62 L 94 09/08/18 23:00 36.5 C 49 L 17 101/54 L 96 09/08/18 20:22 36.5 C 55 L 18 118/80 98 09/08/18 20:20 36.5 C 18 118/80 98
[2018-09-09] MEDS: AMLODIPINE BESYLATE 5 MG TAB PO SCH (07:46)
[2018-09-09] MEDS: METOPROLOL SUCC 50MG EXT REL TAB PO SCH (07:46)
[2018-09-09] MEDS: ASPIRIN 81 MG ECTAB PO SCH (07:47)
[2018-09-09] MEDS: SERTRALINE HCL 100 MG TABLET PO SCH (07:47)
[2018-09-09] MEDS: CHOLECALCIFEROL 1,000 UNITS TAB PO SCH (07:47)
[2018-09-09] MEDS: MoRPHine SULFATE 4 MG/ML 1 ML CARP\\VIAL IV PRN ×2 (12:30→21:43)
[2018-09-10] MEDS: PIPERACILLIN/TAZOBACTAM 4.5 GM in DEXTROSE 5% 100 ML IV SCH ×4 (00:33→23:24)
[2018-09-10] MEDS: NSS + 20MEQ KCL 20 MEQ/1,000 ML BAG IV SCH ×3 (03:53→19:26)
[2018-09-10 06:46] LABS: BUN Creatinine Ratio 8.8 (10-20); Calcium 7.9 mg/dl (8.5-10.1); Creatinine Clr Calc Pharmacy 84.6 ml/min; Est GFR (African American) 72.4; Est GFR (Non-African American) 62.4; Potassium 3.5 mmol/L (3.5-5.1)
[2018-09-10] MEDS: METOPROLOL SUCC 50MG EXT REL TAB PO SCH (08:18)
[2018-09-10] MEDS: SERTRALINE HCL 100 MG TABLET PO SCH (08:20)
[2018-09-10] MEDS: ASPIRIN 81 MG ECTAB PO SCH (08:20)
[2018-09-10] MEDS: CHOLECALCIFEROL 1,000 UNITS TAB PO SCH (08:20)
[2018-09-10] MEDS: AMLODIPINE BESYLATE 5 MG TAB PO SCH (08:20)
--- NOTE | 2018-09-10 10:02 | Hospitalist Progress Note ---
Date of Service September 10, 2018 Assessment & Plan (1) Acute diverticulitis: -Patient presenting from home with reports of abdominal pain x1 week, was seen by PCP 4 days [employer] and placed on Cipro for suspected diverticulitis -In the ED, CT ABD/pelvis showing acute diverticulitis without abscess -Afebrile, no leukocytosis; does not appear septic -Cont IV Zosyn -IVF, PRN pain and antiemetic medications -Noted colonoscopy from 2013 demonstrated diverticulosis throughout the entire examined colon -Given history of recurrent flares, recommend outpatient follow-up with GI and/or general surgery (2) SHY (acute kidney injury): -Likely prerenal nature secondary to poor p.o. intake, diarrhea in combination with continued TAMICA inhibitor and diuretic use -IVF, restart lisinopril and chlorthalidone -Follow renal functions (3) Hypokalemia: -Replace, follow potassium levels (4) Hypertension: -BP controlled, continue amlodipine and metoprolol -Resume chlorthalidone and lisinopril (5) Depression: -Continue sertraline (6) DVT prophylaxis: -SCDs, ambulate -Labs Checked -DC in 1-2 days ROS-No Headache, No Visual Changes, +Nausea, No Vomiting, No Fever, No Chills, No Neck Pain or Stiffness, No Chest Pain, No Palpitations, No SOB, No MYERS, No Cough, No Sputum, No Wheezing, +Abdominal Pain, No Diarrhea, No Hematemesis, No Hemoptysis, No Unexpected Weight Loss, No Flank pain, No Melena, No Hematochezia, No Frequency, No Urgency, No Burning, No Hematuria, No Rashes, No Diaphoresis. Appetite is Normal Physical Exam Gen-AAO x 3, NAD, Afebrile, obese Head-NCAT, EOMI, PERRLA, Anicteric Sclera, No Posterior Pharyngeal Erythema Neck-Supple, No JVD, No Thyromegaly, No Masses, No LAD, No Bruits Lungs-Clear to Auscultation Bilaterally, No Rales, No Rhonchi, No Wheezing, No Crepitus Chest-No S4, +S1, +S2, No S3, No Murmurs, No Rubs, No Gallops, No Ectopy Abdomen-Soft, Bowel Sounds Present, Tender, Non Distended, No Hepatomegaly, No Splenomegaly, No Palpable Masses, No Rebound, No Rigidity, No Guarding Musculoskeletal-Full Range of Motion Bilaterally, No CVAT Extremities-No Cyanosis, No Clubbing, No Edema Nuero-Cranial Nerves II-XII grossly intact, Motor WNL, DTRs WNL, Strength WNL, Non Focal Psych-Normal Mood Results & Data Vital Signs (Past 12 Hours) Vital Signs Temp Pulse Resp BP BP Pulse Ox 09/10/18 07:32 36.7 C 51 L 18 158/92 H 99 09/09/18 23:00 36.7 C 48 L 17 117/77 94
[2018-09-10] MEDS ORDERED: DICYCLOMINE HCL 10 MG CAP PO PRN (10:03)
[2018-09-10] MEDS: LISINOPRIL 40 MG TAB PO SCH (10:37)
[2018-09-10] MEDS: CHLORTHALIDONE 25 MG TAB PO SCH (10:38)
[2018-09-10] MEDS ORDERED: LORazepam 0.25 MG/0.5 ML VIAL IV PRN (10:46)
[2018-09-11] MEDS: NSS + 20MEQ KCL 20 MEQ/1,000 ML BAG IV SCH (03:20)
[2018-09-11 05:46] LABS: Basophils # (auto) 0.03 K/uL (0-0.2); Basophils % (auto) 0.6 %; Eosinophils # (auto) 0.17 K/uL (0-0.5); Eosinophils % (auto) 3.3 %; Hematocrit (blood only) 43.1 % (42-52); Hemoglobin 14.6 g/dL (14.0-18.0); Immature Granulocytes # (auto) 0.02 K/uL (0.00-0.02); Immature Granulocytes % (auto) 0.4 %; Lymphocytes # (auto) 1.78 K/uL (1.2-3.4); Lymphocytes % (auto) 34.7 %; Mean Corpuscular Hgb Conc 33.9 g/dL (32-36); Mean Platelet Volume 9.9 fL (7.4-10.4); Monocytes # (auto) 0.71 K/uL (0.11-0.59); Monocytes % (auto) 13.8 %; Neutrophils # (auto) 2.42 K/uL (1.4-6.5); Neutrophils % (auto) 47.2 %; Platelet Count 209 K/uL (130-400); RDW Coefficient of Variation 13.4 % (11.5-14.5); RDW Standard Deviation 44.5 fL (36.4-46.3); Red Blood Count 4.79 M/uL (4.7-6.1); White Blood Count 5.13 K/uL (4.8-10.8)
[2018-09-11 06:16] LABS: BUN Creatinine Ratio 7.3 (10-20); Calcium 7.9 mg/dl (8.5-10.1); Creatinine Clr Calc Pharmacy 90.2 ml/min; Est GFR (African American) 78.2; Est GFR (Non-African American) 67.5; Potassium 3.5 mmol/L (3.5-5.1)
[2018-09-11 07:36] VITALS: PULSE 56; TEMP 97.9; O2SAT 98
[2018-09-11] MEDS: METOPROLOL SUCC 50MG EXT REL TAB PO SCH (07:47)
[2018-09-11] MEDS: ASPIRIN 81 MG ECTAB PO SCH (07:49)
[2018-09-11] MEDS: CHOLECALCIFEROL 1,000 UNITS TAB PO SCH (07:49)
[2018-09-11] MEDS: AMLODIPINE BESYLATE 5 MG TAB PO SCH (07:49)
[2018-09-11] MEDS: PIPERACILLIN/TAZOBACTAM 4.5 GM in DEXTROSE 5% 100 ML IV SCH (07:49)
[2018-09-11] MEDS: CHLORTHALIDONE 25 MG TAB PO SCH (07:49)
[2018-09-11] MEDS: LISINOPRIL 40 MG TAB PO SCH (07:49)
[2018-09-11] MEDS: SERTRALINE HCL 100 MG TABLET PO SCH (07:49)
--- NOTE | 2018-09-11 08:09 | Discharge Summary ---
Date of Service September 11, 2018 Admission HPI Per Admitting Provider 52-year-old male who presents to the ED with abdominal pain. Patient reports his symptoms began 1 week ago. He was seen by his PCP 4 days ago and was placed on Cipro for suspected diverticulitis. Patient has history of multiple recurrences of diverticulitis, status post sigmoid resection in 1996. Patient reports pain is located in his lower abdomen. He has had several episodes of diarrhea. Reports diarrhea occurs shortly after eating. For the past couple of days, he has decreased his food intake. Reports he has been drinking water. Denies bright red bleeding per rectum and dark tarry stools. He has had nausea denies any vomiting. He reports being lightheaded and dizzy however no syncopal events. He has had a persistent headache located over his left judaism. No blurred vision. Denies chest pain shortness of breath. Reports episodes of diaphoresis however no chills and does not think he has had a fever. No urinary symptoms. In the ED, CT ABD/pelvis is showing acute diverticulitis of the hobbs sverse colon. Labs show creatinine 1.7, K+ 3.1. Patient was given IVF, IV Zosyn, IV Zofran, IV fentanyl, IM dicyclomine, IV Tylenol. Admission Exam Per Admitting Provider Constitutional: WD/WN, vitals as above Eyes: PERRL, conjunctivae normal, anicteric sclerae ENMT: Ears: no external ear abnormality Nose: no external nose abnormality Mouth: + dry oral mucous membranes Respiratory: normal respiratory effort, lungs clear to auscultation Cardiovascular: Rate/Rhythm: regular rate and regular rhythm Vessels: normal peripheral pulses Extremities: no edema Gastrointestinal (Abdomen): Inspection/Auscultation: normal bowel sounds; abdomen not distended Percussion/Palpation: + abdomen tender (Lower abdomen, more pronounced in the left lower quadrant) and abdomen soft; no hepatosplenomegaly Musculoskeletal: no cyanosis or clubbing, extremities motor strength 5/5 Skin: no rashes, warm and dry Neurologic: PERRL, EOMI, accommodation nl, no face palsy, no dysarthria Psychiatric: A+Ox3, euthymic affect Principal Diagnosis Diverticulitis Obesity SHY IBS Anxiety HTN Depression Discharge Exam Physical Exam Gen-AAO x 3, NAD, Afebrile Head-NCAT, EOMI, PERRLA, Anicteric Sclera, No Posterior Pharyngeal Erythema Neck-Supple, No JVD, No Thyromegaly, No Masses, No LAD, No Bruits Lungs-Clear to Auscultation Bilaterally, No Rales, No Rhonchi, No Wheezing, No Crepitus Chest-No S4, +S1, +S2, No S3, No Murmurs, No Rubs, No Gallops, No Ectopy Abdomen-Soft, Bowel Sounds Present, Non Tender, Non Distended, No Hepatomegaly, No Splenomegaly, No Palpable Masses, No Rebound, No Rigidity, No Guarding Musculoskeletal-Full Range of Motion Bilaterally, No CVAT Extremities-No Cyanosis, No Clubbing, No Edema Nuero-Cranial Nerves II-XII grossly intact, Motor WNL, DTRs WNL, Strength WNL, Non Focal Psych-Normal Mood Discharge Data Allergies Allergy/AdvReac Type Severity Reaction Status Date / Time Iodinated Contrast- Oral and Allergy Mild HIVES Verified 09/08/18 16:46 IV Dye prednisone Allergy Mild CHEST PAIN Verified 09/08/18 16:46 AND SHORTNESS OF BREATH Consultations 09/08/18 18:18 ED Decision to Admit Stat Ordered Studies 09/08/18 16:09 CT abd pelvis wo con Stat Current Diagnoses Hypokalemia (09/08/18) Major depressive disorder, single episode, unspecified (09/08/18) Essential (primary) hypertension (09/08/18) Diverticulitis of intestine, part unspecified, without perforation or abscess without bleeding (09/08/18) Acute kidney failure, unspecified (09/08/18) Encounter for prophylactic measures, unspecified (09/08/18) Allergies Iodinated Contrast- Oral and IV Dye Allergy (Mild, Verified 09/08/18 16:46) HIVES prednisone Allergy (Mild, Verified 09/08/18 16:46) CHEST PAIN AND SHORTNESS OF BREATH Height/Weight/Isolation Height 5 ft 10 in Weight 119 kg Isolation Type Contact Precautions Chemistry 09/10/18 09/11/18 05:50 05:18 Sodium 139 141 Potassium 3.5 3.5 Chloride 106 108 H Carbon Dioxide 29 29 Anion Gap 4.0 4.0 BUN 11 D 9 Creatinine 1.29 1.21 Glucose 89 90 Microbiology 09/08/18 17:50 Stool Shiga Toxin Test - Final 09/08/18 17:50 Stool Stool Culture - Final No Salmonella isolated, No Shigella isolated, No Campylobacter jejuni isolated. Hospital Course (1) Acute diverticulitis: -Patient presenting from home with reports of abdominal pain x1 week, was seen by PCP 4 days [employer] and placed on Cipro for suspected diverticulitis -In the ED, CT ABD/pelvis showing acute diverticulitis without abscess -Afebrile, no leukocytosis; does not appear septic -DC Home on Augmentin and Flagyl x 7 days -Noted colonoscopy from 2013 demonstrated diverticulosis throughout the entire examined colon -Given history of recurrent flares, recommend outpatient follow-up with GI and/or general surgery (2) SHY (acute kidney injury): Resolved (3) Hypokalemia: -Replaced (4) Hypertension: -Esume amlodipine and metoprolol -Resume chlorthalidone and lisinopril (5) Depression: -Continue sertraline (6) DVT prophylaxis: DC Today and f/u c Dr bello Hartley 09/13 at 1055 am Total Time Total Time Spent Total Time Spent (In Minutes): 40 min Total Time Includes: Examination of the Patient, Discharge Planning, Medication Reconciliation and Communication With Other Providers Discharge Plan Discharge Items Patient Disposition: Home - Self-Care Reason For Visit: DIVERTICULITIS,SHY Discharge Diagnosis: Diverticulitis Obesity SHY IBS Anxiety HTN Depression Condition: Good Discharge Goals: Improve disease control Activity: Resume your previous activity Lifting: Gradually increase as tolerated Bathing: No limitations Sexual Activity: When tolerated Exercise/Sports: Gradually increase as tolerated Driving/Machine Use: No limitations Weightbearing: Left weightbearing and Right weightbearing Non-emergency contact: Primary Care Provider Call non-emergency contact if: you have any medication questions, your symptoms worsen and your pain is worsening Follow-up/Referrals: Bello Hartley DO [Primary Care Provider] - 09/13/18 10:55 am (Have Dr Hartley refer you to Surgery and GI for an evaluation) Diet: Regular and Low Fiber Addtl Provider Instructions: Refer to GI and Surgery for Eval-Recurrent Diverticulitis Prescriptions: New acetaminophen [Mapap (acetaminophen)] 325 mg Tablet 650 mg PO Q4H PRN (Reason: fever or pain) Qty: 100 RF: 0 amoxicillin-pot clavulanate [Augmentin] 875-125 mg tablet 1 tab PO BID Qty: 7 RF: 0 metronidazole [Flagyl] 500 mg tablet 500 mg PO BID 7 Days Qty: 14 RF: 0 Continued metoprolol succinate 100 mg tablet extended release 24 hr 100 mg PO DAILY RF: 0 sertraline 100 mg tablet 150 mg PO DAILY RF: 0 chlorthalidone 25 mg tablet 25 mg PO DAILY RF: 0 aspirin [Aspirin Low Dose] 81 mg Tablet,Delayed Release (Dr/Ec) 81 mg PO DAILY RF: 0 amlodipine 10 mg tablet 10 mg PO DAILY RF: 0 lisinopril 40 mg tablet 40 mg PO DAILY RF: 0 cholecalciferol (vitamin D3) 1,000 unit Capsule 1,000 unit PO DAILY RF: 0 dicyclomine 10 mg capsule 10 mg PO TID PRN (Reason: Abdominal Pain) RF: 0 Discontinued ciprofloxacin HCl 500 mg tablet 500 mg PO BID RF: 0 Stand-Alone Forms: Call Back Authorization, [facility], Work/School Release (Inpt) Discharge Orders: Discharge Order (Routine); Ordered 09/11/18 Ordered By: Fredy Cedillo Admission Data Admit Date/Time: 09/08/18 18:47 Attending Provider: Fredy Cedillo Admit Provider: Deborah Conte Primary Care Provider: Bello Hartley Other Providers: Deborah Conte Service: Medical
[2018-09-11 08:54] VITALS: BP 150/93
== END 2018-09-11 09:43 | disposition home or self-care (01) | DRG 392 ==
LOC: ED 15:40 → 2N 18:47

== ENCOUNTER 2018-10-03 11:17 | Inpatient (IN) ==
[2018-10-03] MEDS ORDERED: MoRPHine SULFATE 10 MG/ML CARP/VIAL IV STA ×2 (11:34→13:09)
[2018-10-03] MEDS ORDERED: ONDANSETRON INJ 2 MG/ML 2 ML VIAL IV STA (11:34)
[2018-10-03] MEDS ORDERED: SODIUM CHLORIDE 0.9% 1000ML 1,000 ML IV ONE (11:34)
[2018-10-03 11:47] LABS: Basophils # (auto) 0.03 K/uL (0-0.2); Basophils % (auto) 0.4 %; Eosinophils # (auto) 0.23 K/uL (0-0.5); Eosinophils % (auto) 3.4 %; Hematocrit (blood only) 46.2 % (42-52); Hemoglobin 15.9 g/dL (14.0-18.0); Immature Granulocytes # (auto) 0.02 K/uL (0.00-0.02); Immature Granulocytes % (auto) 0.3 %; Lymphocytes # (auto) 2.23 K/uL (1.2-3.4); Lymphocytes % (auto) 32.5 %; Mean Corpuscular Hgb Conc 34.4 g/dL (32-36); Mean Corpuscular Volume 90.8 fL (80-100); Mean Platelet Volume 10.5 fL (7.4-10.4); Monocytes # (auto) 1.04 K/uL (0.11-0.59); Monocytes % (auto) 15.2 %; Neutrophils # (auto) 3.31 K/uL (1.4-6.5); Neutrophils % (auto) 48.2 %; Platelet Count 188 K/uL (130-400); RDW Standard Deviation 46.6 fL (36.4-46.3); Red Blood Count 5.09 M/uL (4.7-6.1); White Blood Count 6.86 K/uL (4.8-10.8)
[2018-10-03 12:04] LABS: Albumin Level 3.7 gm/dl (3.4-5.0); BUN Creatinine Ratio 14.1 (10-20); Bilirubin Direct 0.2 mg/dl (0-0.2); Calcium 9.3 mg/dl (8.5-10.1); Creatinine Clr Calc Pharmacy 73.9 ml/min; Est GFR (African American) 61.8; Est GFR (Non-African American) 53.3; Potassium 3.2 mmol/L (3.5-5.1)
[2018-10-03 12:07] LABS: Bilirubin,Total 1.1 mg/dl (0.2-1); Total Protein 8.4 gm/dl (6.4-8.2)
--- NOTE | 2018-10-03 12:50 | CT Scan Report ---
CT abd pelvis wo con CT DOSE: HISTORY: Flank pain left abdominal pain, recent diverticulitis, TECHNIQUE: Multiaxial CT images of the abdomen and pelvis were performed without contrast. A dose lo wering technique was utilized adhering to the principles of ALARA. COMPARISON STUDY: 09/08/2018 FINDINGS: Lung bases are clear. The liver spleen and pancreas are unremarkable. Kidneys are negative for calcification or hydronephrosis. The adrenal glands are normal. There has be en near complete resolution of the acute diverticulitis previously described in the mid transverse co beth[place]. The appendix remains normal. There is been interval development of acute diverticulitis of the mid descending colon. There is mild localized pericolonic infiltrative change. No evidence for abscess collection or obstruction. Sigmoi d colon is unremarkable. No free fluid within the pelvic cul-de-sac. The bladder is midline. IMPRESSION: 1. Mixed findings compared to the prior study. 2. Interval development of acute focal diverticulitis of mid descending colon. 3. Mild pericolonic infiltrative change. No evidence for drainable abscess collection or obstruction. 4. Near complete resolution of the previously described acute diverticulitis of the mid transverse co bethany. The above report was generated using voice recognition software. It may contain grammatical, syntax or spelling errors. Electronically signed by: Sven Magana M.D. 10/03/2018 12:49 PM
[2018-10-03] MEDS ORDERED: AMPICILLIN/SULBACTAM SOD 3,000 MG in 0.9 % SODIUM CHLORIDE 100 ML IV STA (13:11)
[2018-10-03] MEDS ORDERED: MoRPHine SULFATE 4 MG/ML 1 ML CARP\\VIAL ONE (13:39)
[2018-10-03] MEDS ORDERED: POTASSIUM CHLORIDE 20 MEQ TABCR PO STA (14:20)
--- NOTE | 2018-10-03 14:27 | History & Physical Report ---
Date of Service October 03, 2018 Assessment & Plan (1) Diverticulitis: Hx recurrent diverticulitis s/p sigmoid colon resection in 1996. Recent hospitalization 09/08/2018-09/11/2018 for diverticulitis of transverse colon seen on CT abdomen/pelvis and at that time he was initially treated by Cipro by PCP for suspected diverticulitis and in hospital received IV Zosyn and was D/C on Augmentin and Flagyl. Previous negative stool cultures. Presented with LLQ x 5 days with diarrhea x 3 days. Denies fever/chills, N/V, melena, hematochezia. In ER pt afebrile, P: 60, R: 20, BP: 116/66, 96% on RA. WBC: 6. CT ABD/PELVIS: Interval development of acute focal diverticulitis of mid descending colon. Mild pericolonic infiltrative change. No evidence for drainable abscess collection or obstruction. Near complete resolution of the previously described acute diverticulitis of the mid transverse colon. -In ER given Unasyn, 1L NSS, Zofran, Morphine -Unasyn, Flagyl -IVF -Clear liquids -C-diff pending -GI consult -May need to consider surgery consult -Monitor CBC, BMP (2) Hypokalemia: K: 3.2 Probable secondary to diarrhea and poor oral intake -Replace and monitor (3) SHY (acute kidney injury): Cr: 1.47. Hx SHY on admission on 09/08/18 with Cr of 1.7 trended down to 1.2 on d/c on 09/11/18 -IVF -Hold lisinopril and chlorthalidone -Monitor renal functions, avoid nephrotoxic agents when possible (4) Hypertension: Stable -Hold lisinopril, chlorthalidone -Continue amlodipine, metoprolol (5) Depression: -Continue sertraline DVT Prophylaxis -SCDs Follows with Dr Bello Hartley for routine care Pt was seen and care coordinated with Dr Steel. See addendum History of Present Illness Chief Complaint: Abdominal pain Primary Care Provider: Bello Hartley, Pt is 52 y/o M with PMH HTN, depression, recurrent diverticulitis s/p sigmoid resection in 1996 presented to ER with c/o LLQ abdominal pain x 5 days. Patient with recent hospitalization 09/08/2018-09/11/2018 for diverticulitis of transverse colon seen on CT abdomen/pelvis. At that time he was initially treated by Cipro by PCP for suspected diverticulitis and in hospital received IV Zosyn and was discharged on Augmentin and Flagyl. He had negative stool cultures at that time. Followed up with GI on 09/26/2018 and has colonoscopy planned for 11/01/18. Patient reports finished antibiotics and was having improvement of symptoms until 5 days ago when he started with dull aching to left lower quadrant. Left lower quadrant pain increased 3 days ago with associated loose stools with 3-4 episodes daily. Patient reports tried to go back to bland diet eating toast and drinking fluids however having increased pain with eating. Denies any nausea or vomiting, melena or hematochezia, fever or chills. Reports intermittent LARA's past couple of weeks decreased with Tylenol. Denies diaphoresis, syncope, vision changes, neck pain, CP, SOB, orthopnea,cough, sore throat, choking, otalgia, rhinorrhea, paresthesias, weakness, extremity weakness, extremity edema, rashes, urinary symptoms. Allergies Allergy/AdvReac Type Severity Reaction Status Date / Time Iodinated Contrast- Oral and Allergy Mild HIVES Verified 10/03/18 11:56 IV Dye prednisone Allergy Mild CHEST PAIN Verified 10/03/18 11:56 AND SHORTNESS OF BREATH Home Medications Home Medications Medication Instructions Recorded Confirmed Type amlodipine 10 mg PO QAM 09/08/18 10/03/18 History aspirin [Aspirin Low Dose] 81 mg PO QAM 09/08/18 10/03/18 History chlorthalidone 25 mg PO QAM 09/08/18 10/03/18 History cholecalciferol (vitamin D3) 1,000 unit PO QAM 09/08/18 10/03/18 History lisinopril 40 mg PO QAM 09/08/18 10/03/18 History metoprolol succinate 100 mg PO QAM 09/08/18 10/03/18 History sertraline 150 mg PO QAM 09/08/18 10/03/18 History acetaminophen [Tylenol Extra 500 mg PO Q6H PRN 10/03/18 10/03/18 History Strength] ibuprofen 200 mg PO Q6H PRN 10/03/18 10/03/18 History Past Med/Surg History Medical History 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) Depression (Chronic) IBS (irritable bowel syndrome) (Chronic) Diverticulosis (Chronic) Hypertension (Chronic) Surgical History H/O hemorrhoidectomy (Chronic) History of bowel resection (Chronic) Sigmoid for diverticulitis H/O arthroscopic knee surgery (Chronic) Family History Mother Cerebral aneurysm Social History Preferred Language: [place] Communication Ability: Effective Beliefs That Will Affect Care: None Current Living Situation: Spouse and Family Other Information That Helps Us Care for You: No Feels Safe at Home: Yes Safety Concerns: Feels Safe At This Time Smoking Status: Never smoker Hx Alcohol Use: Yes Alcohol type: wine Alcohol Intake Frequency: Rarely Hx Substance Use: Yes substance use type: does not use Last Used Substance: Unknown Review of Systems Review of Systems: All systems reviewed & are unremarkable except as noted in HPI & below Physical Exam Physical Exam: General: no acute distress at this time, obese Head: normocephalic, atraumatic Eyes: PERRL, EOM's intact, conjunctiva non-injected, anicteric ENT: normal inspection external ears, nose, mucous membranes dry Neck: supple, trachea midline Lungs: clear, no respiratory distress, no wheezing/rhonchi/rales CV: RRR, no murmur, no pretibial edema Abd: normal BS, soft, protuberant, +healed surgical scars noted, +tender to palpation LLQ without rebound Ext: no cyanosis, no calf tenderness Neuro: A&O x 3, no focal deficits noted, normal affect Skin: warm, dry Results & Data Vital Signs (Past 12 Hours) Vital Signs Temp Pulse Resp BP Pulse Ox 10/03/18 14:00 49 L 16 115/72 94 10/03/18 13:30 46 L 14 116/66 94 10/03/18 13:07 51 L 16 110/75 91 10/03/18 13:00 46 L 17 10/03/18 12:40 53 L 10/03/18 12:23 52 L 18 126/79 10/03/18 11:19 36.5 C 60 20 96 Laboratory Results Short CBC 10/03/18 Range/Units 11:35 WBC 6.86 (4.8-10.8) K/uL Hgb 15.9 (14.0-18.0) g/dL Hct 46.2 (42-52) % Plt Count 188 (130-400) K/uL BMP 10/03/18 11:35 Sodium 138 Potassium 3.2 L Chloride 100 Carbon Dioxide 33 H BUN 21 H Creatinine 1.47 H Glucose 93 Calcium 9.3 Liver Function 10/03/18 Range/Units 11:35 Total Bilirubin 1.1 H (0.2-1) mg/dl Direct Bilirubin 0.2 (0-0.2) mg/dl AST 20 (15-37) U/L ALT 28 (12-78) U/L Alkaline Phosphatase 67 (45-117) U/L Albumin 3.7 (3.4-5.0) gm/dl Diagnostic Findings CT ABD/PELVIS: IMPRESSION: 1. Mixed findings compared to the prior study. 2. Interval development of acute focal diverticulitis of mid descending colon. 3. Mild pericolonic infiltrative change. No evidence for drainable abscess collection or obstruction. 4. Near complete resolution of the previously described acute diverticulitis of the mid transverse colon. Supervising Physician Co-Signing Physician Notes I, Dr. Fredy Steel, have seen and examined the patient with physician billing assistant and agree with the assessment and plan as above and would like to comment that on exam General: awake and alert and verbal Lungs: clear to auscultation bilaterally Heart: regular rate and rhythm Abdomen: soft, bowel sounds present, tenderness of left lower quadrant Neuro: no gross focal motor deficits Patient has recurrent diverticulitis however the location of the diverticulitis is different compared to the of previous admission on 09/08/[address] abdomen Acute diverticulitis of the transverse colon whereas this admission CT 10/03/18 of Interval development of acute focal diverticulitis of mid descending colon. Patient has developed this recurrent diverticulitis while already on antibiotics. Between previous to the 1st hospitalization and since that time, patient estimates he has been on antibiotics for 14 to 20 days this past month. will continue antibiotics as Unasyn and Flagyl for now.will send stool to rule out C.difficile. will seek Gastroenterology inpatient consult. keep on clear liquid diet, and npo after midnight if any need for colonoscopy. treat acute kidney injury with IV fluids. replace serum potassium levels with potassium supplements
[2018-10-03] MEDS ORDERED: POTASSIUM CHLORIDE 10 MEQ TABCR PO ONE (16:41)
[2018-10-03] MEDS ORDERED: ONDANSETRON INJ 2 MG/ML 2 ML VIAL IV PRN (17:17)
[2018-10-03] MEDS ORDERED: MoRPHine SULFATE 4 MG/ML 1 ML CARP\\VIAL IV PRN (17:17)
--- NOTE | 2018-10-03 17:32 | Emergency Department Note ---
Entered by Ricarda Mandel acting as a scribe for ED Provider Note Name: Augustin Masterson Age: 52M Arrives Via: POB Informant: Patient CC: Abdominal pain HPI: The patient is a 52 year old male that is presenting to the Emergency Room with complaints of persistent left lower abdominal pain that started 3 days ago. The patient reports that his symptoms are similar to his past episode of diverticulitis 2 weeks ago. He states that he has loose and bloody stools with possible mucous present. He denies any nausea, vomiting, fever, swelling in his legs, or loss of consciousness. He states that Tylenol and Advil did not relieve his pain symptoms. He notes that he felt dizzy and lightheaded the other day at work and states that he becomes lightheaded with deep breaths. He notes that he has intermittent shortness of breath. He reports that he was taking Flagyl and Cipro after his most recent stay in the hospital. The patient states that he had an episode of anxiety yesterday due to a fluttering sensation in his chest. He denies any personal or family history of blood clots. He notes that he has a his tory of hypertension that is managed with medication. He states that he has a history of a ruptured spleen that was patched. He denies any smoking, drug use, or regular alcohol intake. ROS: See above HPI for pertinent positives & negatives. A total of 10 systems reviewed and were otherwise negative. Past Medical History: Ruptured spleen, IBS, diverticulitis, hypertension Past Surgical History: Bowel resection, knee surgery, hemorrhoidectomy Family History: Mother: Cerebral aneurysm Social History: , lives with spouse, employed; Never smoker, casual alcohol intake, no substance abuse. Home Medications: Amlodipine, lisinopril Allergies Prednisone, IV contrast Physical: Vitals: BP: 115/72; P: 60; R: 20; T: 97.7F, O2 94% RA Exam: GENERAL: Patient is very uncomfortable appearing and in no moderate distress. EYES: No scleral icterus, unremarkable pupils. ENT: Mucous membranes moist, no nasal congestion. NECK: No masses appreciated, no meningismus, trachea is midline. RESPIRATORY: No dyspnea. Clear to auscultation and equal bilaterally. No wheeze, no rhonchi. CARDIOVASCULAR: Regular rate and rhythm. No murmurs, rubs, gallops appreciated. GASTROINTESTINAL: Abdomen soft, no peritonitis. Bowel sounds positive. No masses appreciated.Moderate tenderness to entire left abdomen with guarding. BACK: No midline tenderness, no CVA tenderness EXTREMITIES: Normal motion all extremities, no cyanosis, no edema. NEUROLOGIC: Alert and oriented, no acute motor or sensory deficits, no focal weakness, cranial nerves grossly intact. SKIN: No rash, no jaundice, no diaphoresis. ED Course: Prior Medical Record, Triage/Nursing Notes, Medications, Allergies reviewed by Me Vital Signs: reviewed and remarkable for Labs: Reviewed and remarkable for wnl Interventions: saline lock, morphine IV x 2, Unasyn 3 g IV Imaging: CT abd pelvis wo con CT DOSE: HISTORY: Flank pain left abdominal pain, recent diverticulitis, TECHNIQUE: Multiaxial CT images of the abdomen and pelvis were performed without contrast. A dose lowering technique was utilized adhering to the principles of ALARA. COMPARISON STUDY: 09/08/2018 FINDINGS: Lung bases are clear. The liver spleen and pancreas are unremarkable. Kidneys are negative for calcification or hydronephrosis. The adrenal glands are normal. There has been near complete resolution of the acute diverticulitis previously described in the mid transverse colon. The appendix remains normal. There is been interval development of acute diverticulitis of the mid descending colon. There is mild localized pericolonic infiltrative change. No evidence for abscess collection or obstruction. Sigmoid colon is unremarkable. No free fluid within the pelvic cul-de-sac. The bladder is midline. IMPRESSION: 1. Mixed findings compared to the prior study. 2. Interval development of acute focal diverticulitis of mid descending colon. 3. Mild pericolonic infiltrative change. No evidence for drainable abscess collection or obstruction. 4. Near complete resolution of the previously described acute diverticulitis of the mid transverse colon. The above report was generated using voice recognition software. It may contain grammatical, syntax or spelling errors. Electronically signed by: Sven Magana M.D. 10/03/2018 12:49 PM EKG: none Course: 1128:The patient was evaluated in room C04. A complete history and physical examination was performed. 1309 I reevaluated the patient at this time. He states is pain has returned and that he is very uncomfortable. He does not want to go home in this much distress. 1329: I discussed the patients case with SAEED Tabares, who will evaluate the patient for further management and care. 1330: Upon reevaluation, the patient is resting comfortably. I discussed laboratory and radiographic results with the patient. He verbalized agreement of the treatment plan. The patient will be evaluated for further management and care. Blood pressure: Normal. No Referral necessary Disposition: Hospitalization Differentials: Differential diagnosis: Etiologies such as appendicitis, diverticulitis, PUD, biliary pathology, UTI, pancreatitis, obstruction, mesenteric ischemia, aortic pathology, infections, inflammatory bowel disease, renal colic, as well as others were entertained. Medical Decision Making: Pleasant 52 yr old male with history of HTN, IBS and previous episodes of diverticulitis who also has history of bowel resection and spleen surgery arrives for evaluation of return abdominal pain several days after finishing cipro/flagyl for Diverticulitis. He is quite uncomfortable requiring large doses morphine to control pain. Repeat CT reveals Diverticulitis though this time in different location than previous. He is not septic and wbc OK with normal temp. Unfortunately he is still uncomfortable and I do not feel that discharge would work well for this patient on top of fact he just finished round of abx thus I am concerned there is evidence of treatment failure. Hospitalist consulted who will manage further and patient comfortable with this plan. Impression: Diverticulitis, failure of outpatient therapy, intractable abdominal pain The scribe's documentation has been prepared under my direction and personally reviewed by me in its entirety. I confirm that the note above accurately reflects all work, treatment, procedures, and medical decision making performed by me. 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) Depression (Chronic) IBS (irritable bowel syndrome) (Chronic) Diverticulosis (Chronic) Hypertension (Chronic) Surgical History H/O hemorrhoidectomy (Chronic) History of bowel resection (Chronic) Sigmoid for diverticulitis H/O arthroscopic knee surgery (Chronic) Family History Mother Cerebral aneurysm Social History Preferred Language: Czech Communication Ability: Effective Beliefs That Will Affect Care: None Current Living Situation: Spouse and Family Other Information That Helps Us Care for You: No Feels Safe at Home: Yes Safety Concerns: Feels Safe At This Time Smoking Status: Never smoker Hx Alcohol Use: Yes Alcohol type: wine Alcohol Intake Frequency: Rarely Hx Substance Use: Yes substance use type: does not use Last Used Substance: Unknown Results & Data Vital Signs Vital Signs - 24 hr 10/03/18 11:19 10/03/18 12:23 10/03/18 12:40 Temperature 36.5 C Temperature Source Oral Sepsis Recent Fever Within 48 Hours No Sepsis New/Unexplained Change in Mental Status No Sepsis Action Taken by Nursing No Action Required Pulse Rate 60 52 L 53 L Pulse Rate from SpO2 Sensor Pulse Rhythm Regular Pulse Strength Normal Respiratory Rate 20 18 Respiratory Effort / Characteristics Non-Labored Spontaneous Respiratory Depth Normal Respiratory Pattern Regular Blood Pressure 126/79 Blood Pressure Mean 94 Blood Pressure Position Sitting Pulse Oximetry 96 Oxygen Delivery Method Room Air 10/03/18 13:00 10/03/18 13:07 10/03/18 13:30 Temperature Temperature Source Sepsis Recent Fever Within 48 Hours Sepsis New/Unexplained Change in Mental Status Sepsis Action Taken by Nursing Pulse Rate 46 L 51 L 46 L Pulse Rate from SpO2 Sensor 51 L 49 L Pulse Rhythm Pulse Strength Respiratory Rate 17 16 14 Respiratory Effort / Characteristics Respiratory Depth Respiratory Pattern Blood Pressure 110/75 116/66 Blood Pressure Mean 86 82 Blood Pressure Position Pulse Oximetry 91 94 Oxygen Delivery Method 10/03/18 14:00 Temperature Temperature Source Sepsis Recent Fever Within 48 Hours Sepsis New/Unexplained Change in Mental Status Sepsis Action Taken by Nursing Pulse Rate 49 L Pulse Rate from SpO2 Sensor 49 L Pulse Rhythm Pulse Strength Respiratory Rate 16 Respiratory Effort / Characteristics Respiratory Depth Respiratory Pattern Blood Pressure 115/72 Blood Pressure Mean 86 Blood Pressure Position Pulse Oximetry 94 Oxygen Delivery Method Laboratory Data Result diagrams: 10/03/18 11:35 10/03/18 11:35 Lab Results 10/03/18 10/03/18 10/03/18 Range/Units 11:35 11:35 11:35 WBC 6.86 (4.8-10.8) K/uL RBC 5.09 (4.7-6.1) M/uL Hgb 15.9 (14.0-18.0) g/dL Hct 46.2 (42-52) % MCV 90.8 (80-100) fL MCH 31.2 (25-34) pg MCHC 34.4 (32-36) g/dL RDW Std Deviation 46.6 H (36.4-46.3) fL RDW Coeff of [place] 14.0 (11.5-14.5) % Plt Count 188 (130-400) K/uL MPV 10.5 H (7.4-10.4) fL Immature Gran % (Auto) 0.3 % Neut % (Auto) 48.2 % Lymph % (Auto) 32.5 % [place] % (Auto) 15.2 % Eos % (Auto) 3.4 % Baso % (Auto) 0.4 % Immature Gran # (Auto) 0.02 (0.00-0.02) K/uL Neut # (Auto) 3.31 (1.4-6.5) K/uL Lymph # (Auto) 2.23 (1.2-3.4) K/uL [place] # (Auto) 1.04 H (0.11-0.59) K/uL Eos # (Auto) 0.23 (0-0.5) K/uL Baso # (Auto) 0.03 (0-0.2) K/uL Sodium 138 (136-145) mmol/L Potassium 3.2 L (3.5-5.1) mmol/L Chloride 100 (98-107) mmol/L Carbon Dioxide 33 H (21-32) mmol/L Anion Gap 5.0 (3-11) BUN 21 H (7-18) mg/dl Creatinine 1.47 H (0.6-1.4) mg/dl Est Cr Clr Drug Dosing 73.9 ml/min Est GFR ( Amer) 61.8 Est GFR (Non-Af Amer) 53.3 BUN/Creatinine Ratio 14.1 (10-20) Glucose 93 (70-99) mg/dl Calcium 9.3 (8.5-10.1) mg/dl Magnesium 2.6 H (1.8-2.4) mg/dl Total Bilirubin 1.1 H (0.2-1) mg/dl Direct Bilirubin 0.2 (0-0.2) mg/dl AST 20 (15-37) U/L ALT 28 (12-78) U/L Alkaline Phosphatase 67 (45-117) U/L Total Protein 8.4 H (6.4-8.2) gm/dl Albumin 3.7 (3.4-5.0) gm/dl Lipase 205 (73-393) U/L Administered Medications Discontinued Medications Sodium Chloride (Nss 1000ml) 1,000 mls @ 999 mls/hr IV .Q1H1M ONE Stop: 10/03/18 12:34 Last Infusion: 10/03/18 13:14 Dose: 0 mls/hr Documented by: [id number] Admin: 10/03/18 11:42 Dose: 999 mls/hr Documented by: [id number] Ampicillin Sodium/Sulbactam Sodium 3,000 mg/ Sodium Chloride 108 mls @ 200 mls/hr IV NOW STA; Protocol Stop: 10/03/18 13:43 Last Infusion: 10/03/18 14:49 Dose: 0 mls/hr Documented by: [id number] Admin: 10/03/18 14:02 Dose: 200 mls/hr Documented by: [id number] Morphine Sulfate (Morphine Sulfate) 10 mg IV NOW STA Stop: 10/03/18 11:35 Last Admin: 10/03/18 12:24 Dose: 10 mg Documented by: [id number] Morphine Sulfate (Morphine Sulfate) 8 mg IV NOW STA Stop: 10/03/18 13:10 Last Admin: 10/03/18 14:05 Dose: Not Given Documented by: [id number] Morphine Sulfate (Morphine Sulfate) Confirm Administered Dose 8 mg .ROUTE .STK- MED ONE Stop: 10/03/18 13:40 Last Admin: 10/03/18 13:43 Dose: 8 mg Documented by: [id number] Ondansetron HCl (Zofran) 4 mg IV NOW STA Stop: 10/03/18 11:35 Last Admin: 10/03/18 12:23 Dose: 4 mg Documented by: [id number] Potassium Chloride (Klor-Con M20) 40 meq PO NOW STA Stop: 10/03/18 14:21 Last Admin: 10/03/18 16:44 Dose: Not Given Documented by: [id number] Potassium Chloride (Klor-Con M10) Confirm Administered Dose 40 meq PO .STK-MED ONE Stop: 10/03/18 16:42 Last Admin: 10/03/18 16:44 Dose: 40 meq Documented by: [id number] Discharge Plan Visit Data *Final* Discharge Date/Time: 10/03/18 16:48 Chief Complaint: Abdominal Pain Stated Complaint: STOMACH PAIN, DIARRHEA ED Provider: Jaime Limon Discharge Problem: Diverticulosis, Failure of outpatient treatment, Intractable abdominal pain Patient Disposition: Admitted As Inpatient Discharge Instructions Interventions: ED Discharge Assessment Last Done: 10/03/18 16:48 The scribe's documentation has been prepared under my direction and personally reviewed by me in its entirety. I confirm that the note above accurately reflects all work, treatment, procedures, and medical decision making performed by me.
[2018-10-03] MEDS ORDERED: NSS + 20MEQ KCL 20 MEQ/1,000 ML BAG IV SCH (18:05)
[2018-10-03] MEDS ORDERED: DiphenhydrAMINE HCL 50 MG/ML VIAL IV PRN (18:24)
[2018-10-03] MEDS: metroNIDAZOLE 500 MG/100 ML BAG IV SCH (19:17)
[2018-10-03] MEDS: AMPICILLIN/SULBACTAM SOD 3,000 MG in 0.9 % SODIUM CHLORIDE 100 ML IV SCH (20:48)
[2018-10-04] MEDS: AMPICILLIN/SULBACTAM SOD 3,000 MG in 0.9 % SODIUM CHLORIDE 100 ML IV SCH ×4 (01:49→19:49)
[2018-10-04] MEDS: SODIUM CHLORIDE 0.9% 1000ML 1,000 ML IV SCH ×2 (01:53→09:51)
[2018-10-04] MEDS: metroNIDAZOLE 500 MG/100 ML BAG IV SCH ×3 (01:55→18:21)
[2018-10-04 07:48] LABS: Hematocrit (blood only) 41.6 % (42-52); Hemoglobin 13.9 g/dL (14.0-18.0); Mean Corpuscular Hgb Conc 33.4 g/dL (32-36); Mean Platelet Volume 10.2 fL (7.4-10.4); Platelet Count 163 K/uL (130-400); RDW Standard Deviation 46.2 fL (36.4-46.3); Red Blood Count 4.57 M/uL (4.7-6.1); White Blood Count 4.69 K/uL (4.8-10.8)
--- NOTE | 2018-10-04 07:56 | Gastrointestinal Consultation ---
Date of Consultation October 04, 2018 Assessment & Plan (1) Diverticulitis: Recurrent acute diverticulitis, this time in a different area than a month ago. We will need to reschedule his colonoscopy for 6 to 8 weeks from resolution of this episode. Regarding treatment of this episode of diverticulitis agree with ampicillin/sulbactam and an inpatient then ciprofloxacin/metronidazole or Augmentin for an additional 10 days as an OP. Clear liquids po today. Present on Admission?: Yes Supervising Physician Co-Signing Physician Notes I saw and evaluated the patient. He had recurrence of epigastric discomfort was found to have evidence of diverticulitis. He notes that his symptoms are particularly located to his left hand side. He has had a prior colonoscopy which showed evidence of diverticulosis per Physical examination No obvious distress Left-sided abdominal tenderness without rebound or peritoneal signs Impression: Patient with recurrent diverticulitis. Given the acute diarrhea I would suggest evaluation for C. difficile and a stool culture. Recommendations Continue with broad-spectrum antibiotics Stool for C. difficile and culture Bentyl 10 mg 3 times daily History of Present Illness Reason for Consultation: Diverticulitis Requesting Physician: Fredy Steel Attending Physician: Fredy Steel MD History of Present Illness Mr Augustin Masterson is a 52 yr old male pt of Dr. eBllo Hartley with a hx of recurrent diverticulitis S/P colon resection in 1996, diverticulitis which he has experienced a total of 4 times this past year, most recently in the end of August, with Cipro/Flagyl x 10 days on discharge, maybe missing a few doses but taking them at the end, finishing all the antibiotics around September 21. He is set up for OP colonoscopy with our group in a few weeks. He had a "great week," w/o any abdominal pain after finishing the antibiotics. However, pain began in the LLQ after eating a high supper on Sat 10/01. Since then, he has had continued LLQ pain with diarrhea up to 4/day. Yesterday, he presented to the ED, due to worsening pain. On arrival, CT with resolution of the area of diverticulitis in the transverse colon, but with a new acute focal diverticulitis in the the mid descending colon. WBC is 4, Hb 13. He is awake, alert, oriented, afebrile but still with fairly severe mild left abdomen to lower abdomen pain with walking to the bathroom or with other moving, turning, or deep breathing. Analgesics help, but pain returns to severe at the end of the dosing interval. Most recent diarrhea was yesterday morning. Allergies Allergy/AdvReac Type Severity Reaction Status Date / Time Iodinated Contrast- Oral and Allergy Mild HIVES Verified 10/03/18 11:56 IV Dye prednisone Allergy Mild CHEST PAIN Verified 10/03/18 11:56 AND SHORTNESS OF BREATH Home Medications Home Medications Medication Instructions Recorded Confirmed Type amlodipine 10 mg PO QAM 09/08/18 10/03/18 History aspirin [Aspirin Low Dose] 81 mg PO QAM 09/08/18 10/03/18 History chlorthalidone 25 mg PO QAM 09/08/18 10/03/18 History cholecalciferol (vitamin D3) 1,000 unit PO QAM 09/08/18 10/03/18 History lisinopril 40 mg PO QAM 09/08/18 10/03/18 History metoprolol succinate 100 mg PO QAM 09/08/18 10/03/18 History sertraline 150 mg PO QAM 09/08/18 10/03/18 History acetaminophen [Tylenol Extra 500 mg PO Q6H PRN 10/03/18 10/03/18 History Strength] ibuprofen 200 mg PO Q6H PRN 10/03/18 10/03/18 History Patient History Medical History 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) Depression (Chronic) IBS (irritable bowel syndrome) (Chronic) Diverticulosis (Chronic) Hypertension (Chronic) Surgical History H/O hemorrhoidectomy (Chronic) History of bowel resection (Chronic) Sigmoid for diverticulitis H/O arthroscopic knee surgery (Chronic) Family History Mother Cerebral aneurysm Social History Preferred Language: Burmese Communication Ability: Effective Beliefs That Will Affect Care: None marital status: Current Living Situation: Spouse and Family Other Information That Helps Us Care for You: No Feels Safe at Home: Yes Safety Concerns: Feels Safe At This Time Smoking Status: Never smoker Hx Alcohol Use: Yes Alcohol type: wine Alcohol Intake Frequency: Rarely Hx Substance Use: Yes substance use type: does not use Last Used Substance: Unknown Review of Systems Constitutional: + body aches (chronic - no recent worsening. "back always hurts.") and + weight loss (20 lbs this month); no fever, no chills and no weakness Eyes: no dry eyes, no eye pain and no itchy eyes Ear, Nose, Mouth, Throat: + dizziness (and lightheaded lately); no ear pain and no hoarseness always throat clear and a "tickle," in the throat Respiratory: no cough, no chest congestion and no wheezing pain with deep breaths Cardiovascular: + palpitations (fluttering - suspects anxiety); no chest pain and no edema Genitourinary: no dysuria and no hematuria Integumentary: + rash; no lesions and no new lesions bumps on the lower arms x 1 year, not itchy Neurologic: no gait abnormality, no falls and no localized weakness Psychiatric: + depression (a little, no thoughts of self harm) and + anxiety (some) Hematologic / Lymphatic: no easy bleeding, no easy bruising, no coagulopathy and no lymphadenopathy Physical Exam Constitutional: WD/WN, vitals as above Eyes: PERRL, conjunctivae normal, anicteric sclerae ENMT: external ear and nose normal, oropharynx normal Neck: trachea midline, no thyromegaly Respiratory: normal respiratory effort, lungs clear to auscultation Cardiovascular: RRR, no murmur, no edema Gastrointestinal (Abdomen): Percussion/Palpation: + abdomen tender (very tende r in the left mid abdomen; mildly tender over the remainder ) and abdomen soft; no splenomegaly and no hernia Neurologic: PERRL, EOMI, accommodation nl, no face palsy, no dysarthria Psychiatric: A+Ox3, euthymic affect Lymphatic: no cervical or axillary lymphadenopathy Results & Data Vital Signs (Past 12 Hours) Vital Signs Temp Pulse Resp BP Pulse Ox 10/03/18 23:44 36.7 C 49 L 14 99/64 L 97 Laboratory Results WBC 4, Hb 13 Diagnostic Findings Non contrast CT abd/pelvis 7/23/19: 1. Mixed findings compared to the prior study. 2. Interval development of acute focal diverticulitis of mid descending colon. 3. Mild pericolonic infiltrative change. No evidence for drainable abscess collection or obstruction. 4. Near complete resolution of the previously described acute diverticulitis of the mid transverse colon.
[2018-10-04] MEDS: METOPROLOL SUCC 50MG EXT REL TAB PO SCH (07:58)
[2018-10-04] MEDS: AMLODIPINE BESYLATE 5 MG TAB PO SCH (08:02)
[2018-10-04] MEDS: SERTRALINE HCL 100 MG TABLET PO SCH (08:02)
[2018-10-04 08:20] LABS: BUN Creatinine Ratio 13.6 (10-20); Creatinine Clr Calc Pharmacy 86.9 ml/min; Est GFR (African American) 75.2; Est GFR (Non-African American) 64.9; Magnesium 2.2 mg/dl (1.8-2.4); Potassium 3.4 mmol/L (3.5-5.1)
[2018-10-04] MEDS: ACETAMINOPHEN 325 MG TAB PO PRN ×2 (10:03→14:52)
[2018-10-04] MEDS ORDERED: HYDROmorphone INJ 0.5 MG/0.5 ML SYR IV PRN (11:27)
--- NOTE | 2018-10-04 11:31 | Hospitalist Progress Note ---
Date of Service October 04, 2018 Assessment & Plan (1) Diverticulitis: Hx recurrent diverticulitis s/p sigmoid colon resection in 1996. Recent hospitalization 09/08/2018-09/11/2018 for diverticulitis of transverse colon seen on CT abdomen/pelvis and at that time he was initially treated by [facility] by PCP for suspected diverticulitis and in hospital received IV Zosyn and was D/C on Augmentin and Flagyl. Previous negative stool cultures. Presented with LLQ x 5 days with diarrhea x 3 days. Denies fever/chills, N/V, melena, hematochezia. In ER pt afebrile, P: 60, R: 20, BP: 116/66, 96% on RA. WBC: 6. CT ABD/PELVIS: Interval development of acute focal diverticulitis of mid descending colon. Mild pericolonic infiltrative change. No evidence for drainable abscess collection or obstruction. Near complete resolution of the previously described acute diverticulitis of the mid transverse colon. -Patient has recurrent diverticulitis however the location of the diverticulitis is different compared to the of previous admission on 09/08/[address] abdomen Acute diverticulitis of the transverse colon whereas this admission CT 10/03/18 of Interval development of acute focal diverticulitis of mid descending colon. -Patient has developed this recurrent diverticulitis despite previous on antibiotic use. -continue Unasyn and Flagyl on this admission -patient has received IV fluids and will monitor further off IV fluids -because patient will need some duration of IV antibiotic and continued hos pitalization for pain control patient's observation is upgraded to admission status as of 10/04/18 -awaiting stool for C.difficile testing -place on clear liquid diet as no immediate plans by gastronenterology for colonoscopy at this time -follow gastroenterology recommendations (2) Hypokalemia: -mild hypokalemia of serum potassium K: 3.2 on 10/03/18 presentation -probable secondary to diarrhea and poor oral intake -continue to give potassium supplements to maintain serum potassium above 3.5 (3) SHY (acute kidney injury): - Hx SHY on admission on 09/08/18 with Cr of 1.7 trended down to 1.2 on d/c on 09/11/18 -10/03/18 Cr: 1.47 -creatinine normalized with IV fluids -hold IV fluids -Hold lisinopril and chlorthalidone as blood pressure is controlled (4) Hypertension: -Continue amlodipine, metoprolol -Hold lisinopril and chlorthalidone as blood pressure is controlled (5) Depression: -Continue sertraline DVT Prophylaxis -SCDs, ambulation encouraged Subjective Patient continues to have left lower quadrant pain. no bowel movement yet. denies vomiting. patient has been taking acetaminophen for pain. he has been trying to avoid narcotic pain medications. no light headedness. no dizziness. no chest pain. no palpitations Physical Exam Constitutional: WD/WN, vitals as above Eyes: PERRL, conjunctivae normal, anicteric sclerae EOM intact bilaterally ENMT: external ear and nose normal, oropharynx normal Neck: trachea midline, no thyromegaly Respiratory: normal respiratory effort, lungs clear to auscultation Cardiovascular: RRR, no murmur, no edema Gastrointestinal (Abdomen): soft, bowel sounds present, left lower quadrant pain on palpitation Musculoskeletal: Head/Neck/Chest: normocephalic and head atraumatic Neurologic: PERRL, EOMI, accommodation nl, no face palsy, no dysarthria CN's II-XI intact bilaterally Psychiatric: A+Ox3, euthymic affect Results & Data Vital Signs (Past 12 Hours) Vital Signs Temp Pulse Pulse Resp BP Pulse Ox 10/04/18 08:00 36.9 C 60 17 108/72 97 10/03/18 23:44 36.7 C 49 L 14 99/64 L 97
[2018-10-04] MEDS ORDERED: POTASSIUM CHLORIDE 20 MEQ TABCR PO ONE (11:45)
[2018-10-04] MEDS: DICYCLOMINE HCL 10 MG CAP PO SCH ×2 (16:18→19:49)
[2018-10-05] MEDS: AMPICILLIN/SULBACTAM SOD 3,000 MG in 0.9 % SODIUM CHLORIDE 100 ML IV SCH ×4 (01:36→19:59)
[2018-10-05] MEDS: metroNIDAZOLE 500 MG/100 ML BAG IV SCH ×3 (02:14→17:05)
[2018-10-05] MEDS: DICYCLOMINE HCL 10 MG CAP PO SCH ×4 (08:04→20:02)
[2018-10-05] MEDS: AMLODIPINE BESYLATE 5 MG TAB PO SCH (08:23)
[2018-10-05] MEDS: SERTRALINE HCL 100 MG TABLET PO SCH (08:24)
[2018-10-05] MEDS: METOPROLOL SUCC 50MG EXT REL TAB PO SCH (08:24)
--- NOTE | 2018-10-05 12:49 | Hospitalist Progress Note ---
Date of Service October 05, 2018 Assessment & Plan (1) Diverticulitis: Hx recurrent diverticulitis s/p sigmoid colon resection in 1996. Recent hospitalization 09/08/2018-09/11/2018 for diverticulitis of transverse colon seen on CT abdomen/pelvis and at that time he was initially treated by Tanya by PCP for suspected diverticulitis and in hospital received IV Zosyn and was D/C on Augmentin and Flagyl. Previous negative stool cultures. Presented with LLQ x 5 days with diarrhea x 3 days. Denies fever/chills, N/V, melena, hematochezia. In ER pt afebrile, P: 60, R: 20, BP: 116/66, 96% on RA. WBC: 6. CT ABD/PELVIS: Interval development of acute focal diverticulitis of mid descending colon. Mild pericolonic infiltrative change. No evidence for drainable abscess collection or obstruction. Near complete resolution of the previously described acute diverticulitis of the mid transverse colon. -Patient has recurrent diverticulitis however the location of the diverticulitis is different compared to the of previous admission on 09/08/[address] abdomen Acute diverticulitis of the transverse colon whereas this admission CT 10/03/18 of Interval development of acute focal diverticulitis of mid descending colon. -Patient has developed this recurrent diverticulitis despite previous on antibiotic use. -continue Unasyn and Flagyl on this admission -patient has received IV fluids and will monitor further off IV fluids -because patient will need some duration of IV antibiotic and continued hos pitalization for pain control patient's observation is upgraded to admission status as of 10/04/18 -awaiting stool for C.difficile testing -was placed on clear liquid diet as no immediate plans by gastronenterology for colonoscopy at this time -as of 10/05/18: Patient less abdomen pain today, on exam there is no acute tenderness to palpation of left lower quadrant. discussed on advancing the diet and patient does not want full liquids but to advance to regular diet. will continue to monitor in hospital on the IV antibiotics (2) Hypokalemia: -mild hypokalemia of serum potassium K: 3.2 on 10/03/18 presentation -probable secondary to diarrhea and poor oral intake -continue to give potassium supplements to maintain serum potassium above 3.5 -check potassium levels on 10/05/18 (3) SHY (acute kidney injury): - Hx SHY on admission on 09/08/18 with Cr of 1.7 trended down to 1.2 on d/c on 09/11/18 -10/03/18 Cr: 1.47 -creatinine normalized with IV fluids -Hold lisinopril and chlorthalidone as blood pressure is controlled (4) Hypertension: -Continue amlodipine, metoprolol -Hold lisinopril and chlorthalidone as blood pressure is controlled (5) Depression: -Continue sertraline DVT Prophylaxis -SCDs, ambulation encouraged Subjective Patient less abdomen pain today, on exam there is no acute tenderness to palpation of left lower quadrant. discussed on advancing the diet and patient do es not want full liquids but to advance to regular diet. no vomiting. no fever. no chest pain. no back pain. no shortness of breath. no dizziness. no lightheadedness Physical Exam Constitutional: WD/WN, vitals as above Eyes: PERRL, conjunctivae normal, anicteric sclerae EOM intact bilaterally ENMT: external ear and nose normal, oropharynx normal Neck: trachea midline, no thyromegaly Respiratory: normal respiratory effort, lungs clear to auscultation Cardiovascular: RRR, no murmur, no edema Gastrointestinal (Abdomen): normal bowel sounds, soft, nontender, no hepatosplenomegaly Musculoskeletal: Head/Neck/Chest: normocephalic and head atraumatic Neurologic: PERRL, EOMI, accommodation nl, no face palsy, no dysarthria CN's II-XI intact bilaterally Psychiatric: A+Ox3, euthymic affect Results & Data Vital Signs (Past 12 Hours) Vital Signs Temp Pulse Resp BP Pulse Ox 10/05/18 07:54 36.7 C 59 L 15 122/80 90
[2018-10-05 13:30] LABS: BUN Creatinine Ratio 7.7 (10-20); Calcium 9.1 mg/dl (8.5-10.1); Creatinine Clr Calc Pharmacy 89.1 ml/min; Est GFR (African American) 77.4; Est GFR (Non-African American) 66.8; Potassium 3.7 mmol/L (3.5-5.1)
--- NOTE | 2018-10-05 14:31 | Gastroenterology Progress Note ---
Date of Service October 05, 2018 Assessment & Plan (1) Diverticulitis: Recurrent acute diverticulitis, improving We will need to reschedule his colonoscopy for 6 to 8 weeks from resolution of this episode. Our office will contact him to arrange. Regarding treatment of this episode of diverticulitis, agree with ampicillin/sulbactam and then ciprofloxacin/metronidazole or Augmentin for an additional 10 days as an OP. Advance diet as tolerated. Continue Bentyl GI will sign off. Supervising Physician Co-Signing Physician Notes I saw and evaluated the patient. He had recurrence of epigastric discomfort was found to have evidence of diverticulitis. He notes that his symptoms are particularly located to his left hand side. He has had a prior colonoscopy which showed evidence of diverticulosis. Physical examination No obvious distress Left-sided abdominal tenderness without rebound or peritoneal signs (Improved) Impression: Patient with recurrent diverticulitis appears to be improving with IV antibiotics. Recommendations Continue with broad-spectrum antibiotics for a total of 10 days Bentyl 10 mg 3 times daily for the next 2 weeks Colonoscopy in 6 to 8 weeks Advance diet as tolerated Gastrology to sign off for the present time Subjective Feels "80% better." BMs now soft. Abd pain nearly resolved. Anxious for DC. Review of Systems Constitutional: + weight loss (20 lbs this month) "much better" Ear, Nose, Mouth, Throat: no dizziness (and lightheaded lately) and no hoarseness always throat clear and a "tickle," in the throat Respiratory: no cough, no chest congestion, no dyspnea and no wheezing Cardiovascular: + palpitations (fluttering - suspects anxiety); no chest pain and no edema Integumentary: + rash; no lesions and no new lesions bumps on the lower arms x 1 year, not itchy No jaundice Psychiatric: + depression (a little, no thoughts of self harm) and + anxiety (some) Physical Exam Constitutional: WD/WN, vitals as above Eyes: PERRL, conjunctivae normal, anicteric sclerae ENMT: external ear and nose normal, oropharynx normal Neck: trachea midline, no thyromegaly Respiratory: normal respiratory effort, lungs clear to auscultation Cardiovascular: RRR, no murmur, no edema Gastrointestinal (Abdomen): normal bowel sounds, soft, nontender, no hepatosplenomegaly Neurologic: PERRL, EOMI, accommodation nl, no face palsy, no dysarthria Psychiatric: A+Ox3, euthymic affect Lymphatic: no cervical or axillary lymphadenopathy Results & Data Vital Signs (Past 12 Hours) Vital Signs Temp Pulse Resp BP Pulse Ox 10/05/18 07:54 36.7 C 59 L 15 122/80 90
[2018-10-06] MEDS: AMPICILLIN/SULBACTAM SOD 3,000 MG in 0.9 % SODIUM CHLORIDE 100 ML IV SCH ×2 (02:13→09:00)
[2018-10-06] MEDS: metroNIDAZOLE 500 MG/100 ML BAG IV SCH ×2 (02:50→10:20)
[2018-10-06] MEDS: DICYCLOMINE HCL 10 MG CAP PO SCH ×2 (07:23→11:17)
[2018-10-06] MEDS: AMLODIPINE BESYLATE 5 MG TAB PO SCH (09:00)
[2018-10-06] MEDS: METOPROLOL SUCC 50MG EXT REL TAB PO SCH (09:00)
[2018-10-06] MEDS: SERTRALINE HCL 100 MG TABLET PO SCH (09:00)
--- NOTE | 2018-10-06 12:19 | Hospitalist Progress Note ---
Date of Service October 06, 2018 Assessment & Plan (1) Diverticulitis: Hx recurrent diverticulitis s/p sigmoid colon resection in 1996. Recent hospitalization 09/08/2018-09/11/2018 for diverticulitis of transverse colon seen on CT abdomen/pelvis and at that time he was initially treated by Tanya by PCP for suspected diverticulitis and in hospital received IV Zosyn and was D/C on Augmentin and Flagyl. Previous negative stool cultures. Presented with LLQ x 5 days with diarrhea x 3 days. Denies fever/chills, N/V, melena, hematochezia. In ER pt afebrile, P: 60, R: 20, BP: 116/66, 96% on RA. WBC: 6. CT ABD/PELVIS: Interval development of acute focal diverticulitis of mid descending colon. Mild pericolonic infiltrative change. No evidence for drainable abscess collection or obstruction. Near complete resolution of the previously described acute diverticulitis of the mid transverse colon. -Patient has recurrent diverticulitis however the location of the diverticulitis is different compared to the of previous admission on 09/08/[address] abdomen Acute diverticulitis of the transverse colon whereas this admission CT 10/03/18 of Interval development of acute focal diverticulitis of mid descending colon. -Patient has developed this recurrent diverticulitis despite previous on antibiotic use. -continue Unasyn and Flagyl on this admission -patient has received IV fluids and will monitor further off IV fluids -because patient will need some duration of IV antibiotic and continued hos pitalization for pain control patient's observation is upgraded to admission status as of 10/04/18 -awaiting stool for C.difficile testing -was placed on clear liquid diet as no immediate plans by gastronenterology for colonoscopy at this time -as of 10/05/18: Patient less abdomen pain today, on exam there is no acute tenderness to palpation of left lower quadrant. discussed on advancing the diet and patient does not want full liquids but to advance to regular diet. continue to monitor in hospital on the IV antibiotics 10/06/18 Discharge to home Patient should take Bentayl (dicyclomine) three times a day with meals for relief of spasms of the muscles in the gastrointestinal tract Patient was treated in the hospital with IV antibiotics or Ampicillin/sulbactam and IV metronidazole and should take the oral forms of these antibiotics as Augmentin (amoxicillin/clavunalate) 875 mg every 8 hours and oral metronidazole 500 mg every 8 hours by mouth on discharge Prescriptions sent electronically to [facility] pharmacy on [address] [place] [address] Patient has follow up appointments (10/11/2018 1:30 PM Provider Bello Hartley DO Department Family Practice [facility] Pre-admit 11/17/2018 OUTPATIENT SURGERY [place] Emma Anderson DO 11/29/2018 2:00 PM Provider Sven Ramos MD Department General Surgery, [facility] 12/27/2018 2:00 PM Provider FRANCISCO Mc Department Gastroenterology, [facility]) (2) Hypokalemia: -mild hypokalemia of serum potassium K: 3.2 on 10/03/18 presentation -probable secondary to diarrhea and poor oral intake -continue to give potassium supplements to maintain serum potassium above 3.5 -Patient's potassium levels were repleted in the hospital stay and do not need additional potassium supplements on discharge (3) SHY (acute kidney injury): - Hx SHY on admission on 09/08/18 with Cr of 1.7 trended down to 1.2 on d/c on 09/11/18 -10/03/18 Cr: 1.47 -creatinine normalized with IV fluids -Hold lisinopril and chlorthalidone as blood pressure is controlled -on discharge: Patient may stop home medications of lisinopril and chlorthalidone as blood pressures were controlled in the hospital on amlodipine alone. Patient should have follow up blood pressure check with primary care doctor. Patient should stop regular use of ibuprofen because this can cause kidney injury. Patient may take acetaminophen 325 mg every 6 hours as needed for fever or mild pain for next 5 days (4) Hypertension: -Continue amlodipine, metoprolol -Hold lisinopril and chlorthalidone as blood pressure is controlled -on discharge: Patient may stop home medications of lisinopril and chlorthalidone as blood pressures were controlled in the hospital on amlodipine alone. Patient should have follow up blood pressure check with primary care doctor (5) Depression: -mood stable -Continue sertraline DVT Prophylaxis -SCDs, ambulation encouraged Discharge Diagnosis Diverticulitis (recurrent), Acute kidney Injury, Hypokalemia Subjective Patient tolerating regular diet. Patient denies vomiting. abdomen pain has improved significantly. no shortness of breath. no chest pain. no lightheadedness. no dizziness Physical Exam Constitutional: WD/WN, vitals as above Eyes: PERRL, conjunctivae normal, anicteric sclerae EOM intact bilaterally ENMT: external ear and nose normal, oropharynx normal Neck: trachea midline, no thyromegaly Respiratory: normal respiratory effort, lungs clear to auscultation Cardiovascular: RRR, no murmur, no edema Gastrointestinal (Abdomen): normal bowel sounds, soft, nontender, no hepatosplenomegaly Musculoskeletal: Head/Neck/Chest: normocephalic and head atraumatic Neurologic: PERRL, EOMI, accommodation nl, no face palsy, no dysarthria CN's II-XI intact bilaterally Psychiatric: A+Ox3, euthymic affect Results & Data Vital Signs (Past 12 Hours) Vital Signs Temp Pulse Resp BP Pulse Ox 10/06/18 07:27 36.6 C 68 16 124/86 98
--- NOTE | 2018-10-06 12:23 | Discharge Summary ---
Date of Service October 06, 2018 Admission HPI Per Admitting Provider Pt is 52 y/o M with PMH HTN, depression, recurrent diverticulitis s/p sigmoid resection in 1996 presented to ER with c/o LLQ abdominal pain x 5 days. Patient with recent hospitalization 09/08/2018-09/11/2018 for diverticulitis of transverse colon seen on CT abdomen/pelvis. At that time he was initially treated by Cipro by PCP for suspected diverticulitis and in hospital received IV Zosyn and was discharged on Augmentin and Flagyl. He had negative stool cultures at that time. Followed up with GI on 09/26/2018 and has colonoscopy planned for 11/01/18. Patient reports finished antibiotics and was having improvement of symptoms until 5 days ago when he started with dull aching to left lower quadrant. Left lower quadrant pain increased 3 days ago with associated loose stools with 3-4 episodes daily. Patient reports tried to go back to bland diet eating toast and drinking fluids however having increased pain with eating. Denies any nausea or vomiting, melena or hematochezia, fever or chills. Reports intermittent LARA's past couple of weeks decreased with Tylenol. Denies diaphoresis, syncope, vision changes, neck pain, CP, SOB, orthopnea,cough, sore throat, choking, otalgia, rhinorrhea, paresthesias, weakness, extremity weakness, extremity edema, rashes, urinary symptoms. Admission Exam Per Admitting Provider General: no acute distress at this time, obese Head: normocephalic, atraumatic Eyes: PERRL, EOM's intact, conjunctiva non-injected, anicteric ENT: normal inspection external ears, nose, mucous membranes dry Neck: supple, trachea midline Lungs: clear, no respiratory distress, no wheezing/rhonchi/rales CV: RRR, no murmur, no pretibial edema Abd: normal BS, soft, protuberant, +healed surgical scars noted, +tender to p alpation LLQ without rebound Ext: no cyanosis, no calf tenderness Neuro: A&O x 3, no focal deficits noted, normal affect Skin: warm, dry Principal Diagnosis Diverticulitis (recurrent), Acute kidney Injury, Hypokalemia Discharge Exam Constitutional WD/WN, vitals as above Eyes PERRL, conjunctivae normal, anicteric sclerae EOM intact bilaterally ENMT external ear and nose normal, oropharynx normal Neck trachea midline, no thyromegaly Respiratory normal respiratory effort, lungs clear to auscultation Cardiovascular RRR, no murmur, no edema Gastrointestinal (Abdomen) normal bowel sounds, soft, nontender, no hepatosplenomegaly Musculoskeletal Head/Neck/Chest: normocephalic and head atraumatic Neurologic PERRL, EOMI, accommodation nl, no face palsy, no dysarthria CN's II-XI intact bilaterally Psychiatric A+Ox3, euthymic affect Discharge Data Allergies Allergy/AdvReac Type Severity Reaction Status Date / Time Iodinated Contrast- Oral and Allergy Mild HIVES Verified 10/03/18 11:56 IV Dye prednisone Allergy Mild CHEST PAIN Verified 10/03/18 11:56 AND SHORTNESS OF BREATH Consultations 10/03/18 13:30 ED Decision to Admit Stat 10/03/18 17:17 Consult Gastroenterology Routine Ordered Studies 10/03/18 11:34 CT abd pelvis wo con Stat Hospital Course (1) Diverticulitis: Hx recurrent diverticulitis s/p sigmoid colon resection in 1996. Recent hospitalization 09/08/2018-09/11/2018 for diverticulitis of transverse colon seen on CT abdomen/pelvis and at that time he was initially treated by Cipro by PCP for suspected diverticulitis and in hospital received IV Zosyn and was D/C on Augmentin and Flagyl. Previous negative stool cultures. Presented with LLQ x 5 days with diarrhea x 3 days. Denies fever/chills, N/V, melena, hematochezia. In ER pt afebrile, P: 60, R: 20, BP: 116/66, 96% on RA. WBC: 6. CT ABD/PELVIS: Interval development of acute focal diverticulitis of mid descending colon. Mild pericolonic infiltrative change. No evidence for drainable abscess collection or obstruction. Near complete resolution of the previously described acute diverticulitis of the mid transverse colon. -Patient has recurrent diverticulitis however the location of the diverticulitis is different compared to the of previous admission on 09/08/[address] abdomen Acute diverticulitis of the transverse colon whereas this admission CT 10/03/18 of Interval development of acute focal diverticulitis of mid descending colon. -Patient has developed this recurrent diverticulitis despite previous on antibiotic use. -continue Unasyn and Flagyl on this admission -patient has received IV fluids and will monitor further off IV fluids -because patient will need some duration of IV antibiotic and continued hospitalization for pain control patient's observation is upgraded to admission status as of 10/04/18 -awaiting stool for C.difficile testing -was placed on clear liquid diet as no immediate plans by gastronenterology for colonoscopy at this time -as of 10/05/18: Patient less abdomen pain today, on exam there is no acute tenderness to palpation of left lower quadrant. discussed on advancing the diet and patient does not want full liquids but to advance to regular diet. continue to monitor in hospital on the IV antibiotics 10/06/18 Discharge to home Patient should take Bentayl (dicyclomine) three times a day with meals for relief of spasms of the muscles in the gastrointestinal tract Patient was treated in the hospital with IV antibiotics or Ampicillin/sulbactam and IV metronidazole and should take the oral forms of these antibiotics as Augmentin (amoxicillin/clavunalate) 875 mg every 8 hours and oral metronidazole 500 mg every 8 hours by mouth on discharge Prescriptions sent electronically to [facility] pharmacy on [address] [place] [address] Patient has follow up appointments (10/11/2018 1:30 PM Provider Bello Hartley DO Department Family Practice [facility] Pre-admit 11/17/2018 OUTPATIENT SURGERY [place] Emma Anderson DO 11/29/2018 2:00 PM Provider Sven Ramos MD Department General Surgery, [facility] 12/27/2018 2:00 PM Provider FRANCISCO Mc Department Gastroenterology, [facility]) (2) Hypokalemia: -mild hypokalemia of serum potassium K: 3.2 on 10/03/18 presentation -probable secondary to diarrhea and poor oral intake -continue to give potassium supplements to maintain serum potassium above 3.5 -Patient's potassium levels were repleted in the hospital stay and do not need additional potassium supplements on discharge (3) SHY (acute kidney injury): - Hx SHY on admission on 09/08/18 with Cr of 1.7 trended down to 1.2 on d/c on 09/11/18 -10/03/18 Cr: 1.47 -creatinine normalized with IV fluids -Hold lisinopril and chlorthalidone as blood pressure is controlled -on discharge: Patient may stop home medications of lisinopril and chlorthalidone as blood pressures were controlled in the hospital on amlodipine alone. Patient should have follow up blood pressure check with primary care doctor. Patient should stop regular use of ibuprofen because this can cause kidney injury. Patient may take acetaminophen 325 mg every 6 hours as needed for fever or mild pain for next 5 days (4) Hypertension: -Continue amlodipine, metoprolol -Hold lisinopril and chlorthalidone as blood pressure is controlled -on discharge: Patient may stop home medications of lisinopril and chlort halidone as blood pressures were controlled in the hospital on amlodipine alone. Patient should have follow up blood pressure check with primary care doctor (5) Depression: -mood stable -Continue sertraline DVT Prophylaxis -SCDs, ambulation encouraged Discharge Diagnosis Diverticulitis (recurrent), Acute kidney Injury, Hypokalemia Total Time Total Time Spent Total Time Spent (In Minutes): 40 minutes Total Time Includes: Examination of the Patient, Discharge Planning, Medication Reconciliation and Communication With Other Providers Discharge Plan Discharge Items Patient Disposition: Home - Self-Care Reason For Visit: DIVERTICULITIS Discharge Diagnosis: Diverticulitis (recurrent), Acute kidney Injury, Hypokalemia Condition: Good Discharge Goals: Improve disease control Activity: Resume your previous activity Non-emergency contact: Primary Care Provider Call non-emergency contact if: you have any medication questions Follow-up/Referrals: Bello Hartley DO [Primary Care Provider] - Diet: Regular Addtl Provider Instructions: Discharge to home Patient should take Bentayl (dicyclomine) three times a day with meals for relief of spasms of the muscles in the gastrointestinal tract Patient was treated in the hospital with IV antibiotics or Ampicillin/sulbactam and IV metronidazole and should take the oral forms of these antibiotics as Augmentin (amoxicillin/clavunalate) 875 mg every 8 hours and oral metronidazole 500 mg every 8 hours by mouth on discharge Prescriptions sent electronically to [facility] pharmacy on [address] [place] [address] Patient may stop home medications of lisinopril and chlorthalidone as blood pressures were controlled in the hospital on amlodipine alone. Patient should have follow up blood pressure check with primary care doctor Patient should stop regular use of ibuprofen because this can cause kidney injury. Patient may take acetaminophen 325 mg every 6 hours as needed for fever or mild pain for next 5 days Patient's potassium levels were repleted in the hospital stay and do not need additional potassium supplements on discharge Patient has follow up appointments 10/11/2018 1:30 PM Provider Bello Hartley DO Department Family Practice [facility] Pre-admit 11/17/2018 OUTPATIENT SURGERY [place] Emma Anderson DO 11/29/2018 2:00 PM Provider Sven Ramos MD Department General Surgery, [facility] 12/27/2018 2:00 PM Provider FRANCISCO Mc Department Gastroenterology, [facility] Prescriptions: New metronidazole 500 mg Tablet 500 mg PO Q8H 9 Days Qty: 27 RF: 0 dicyclomine 10 mg Capsule 10 mg PO ACHS 14 Days Qty: 14 RF: 0 amoxicillin-pot clavulanate 875-125 mg Tablet 1 tab PO Q8H 9 Days Qty: 27 RF: 0 acetaminophen 325 mg capsule 325 mg PO Q6H PRN (Reason: fever or mild pain) 5 Days Qty: 20 RF: 0 Continued metoprolol succinate 100 mg tablet extended release 24 hr 100 mg PO QAM RF: 0 sertraline 100 mg tablet 150 mg PO QAM RF: 0 aspirin [Aspirin Low Dose] 81 mg Tablet,Delayed Release (Dr/Ec) 81 mg PO QAM RF: 0 amlodipine 10 mg tablet 10 mg PO QAM RF: 0 cholecalciferol (vitamin D3) 1,000 unit Capsule 1,000 unit PO QAM RF: 0 Discontinued acetaminophen [Tylenol Extra Strength] 500 mg Tablet 500 mg PO Q6H PRN (Reason: Pain) RF: 0 ibuprofen 200 mg Tablet 200 mg PO Q6H PRN (Reason: Pain) RF: 0 chlorthalidone 25 mg tablet 25 mg PO QAM RF: 0 lisinopril 40 mg tablet 40 mg PO QAM RF: 0 Stand-Alone Forms: Call Back Authorization, [facility] Discharge Orders: Discharge Order (Routine); Ordered 10/06/18 Ordered By: Fredy Steel Admission Data Admit Date/Time: 10/04/18 11:34 Attending Provider: Fredy Steel Admit Provider: Fredy Steel Primary Care Provider: Bello Hartley Other Providers: Fredy Steel ; Emma Anderson Service: Surgical Services
[2018-10-06] MEDS ORDERED: AMOXICILLIN/CLAVULANATE 875 MG TAB PO SCH (14:00)
[2018-10-06] MEDS ORDERED: metroNIDAZOLE 500 MG TAB PO SCH (17:00)
== END 2018-10-06 13:01 | disposition home or self-care (01) | DRG 392 ==
LOC: 3W 11:17 → ED 11:17 → 3W 16:48
DX: N17.9 Acute kidney failure, unspecified; E87.6 Hypokalemia; F32.9 Major depressive disorder, single episode, unspecified; I10 Essential (primary) hypertension; K58.9 Irritable bowel syndrome, unspecified; K57.92 Diverticulitis of intestine, part unspecified, without perforation or abscess without bleeding